=== PATIENT | male | born 1950 | race Caucasian/White ===

== ENCOUNTER 2017-12-31 03:09 | Observation (INO) | payer OTHER ==
[2017-12-31] MEDS ORDERED: ONDANSETRON 4 MG/2 ML VIAL ONE (03:27)
[2017-12-31] MEDS ORDERED: FAMOTIDINE 20 MG/2 ML VIAL IV ONE (03:27)
[2017-12-31] MEDS ORDERED: FENTANYL CITR 100 MCG/2 ML ONE ×3 (03:52→17:13)
[2017-12-31] MEDS ORDERED: PIPER/TAZO/NS 3.375gm 3.375 GM/100 ML BAG ONE (03:53)
[2017-12-31] MEDS ORDERED: ENALAPRILAT 1.25 MG/ML VIAL IV ONE ×2 (03:56→07:09)
[2017-12-31 04:23] LABS: Absolute Lymphocytes (CBC) 0.5 K/uL (0.7-4.9); Absolute Monocytes 0.5 K/uL (0.1-1.3); Absolute Neutrophil 9.3 K/uL (1.8-8.0); Basophils % 1.7 % (0-1.3); Eosinophils % 0.9 % (0-4.4); Hematocrit 43.7 % (39.6-49.0); MCH 32.4 pg (27.0-35.0); MCV 93.4 fL (80-100); Monocytes % 4.3 % (3.3-12.3); RBC Red Blood Cell Count 4.67 M/uL (4.33-5.43)
[2017-12-31 04:25] LABS: Protime INR 1.03
[2017-12-31 04:35] LABS: Albumin 4.2 g/dL (3.4-5.0); Bilirubin Direct 0.1 mg/dL (0-0.2); Bilirubin Total 0.5 mg/dL (0.2-1.0); CKMB Creatine Kinase MB 2.8 ng/mL (0.3-3.6); Magnesium 2.1 mg/dL (1.8-2.4); Potassium 3.8 mmol/L (3.5-5.1); Protein, Total 8.4 g/dL (6.4-8.2)
[2017-12-31 05:12] LABS: Blood Morphology Comment NOT SEEN (NOT SEEN); Platelet Estimate ADEQ
--- NOTE | 2017-12-31 05:49 | EDPHYS ---
Physician Documentation [facility] Name: Eric Bloom Age: 67 yrs Sex: Male : 1950 Arrival Date: 12/31/2017 Time: 03:20 Bed 2 Private MD: ED Physician Surinder Priest HPI: 12/31 03:36 This 67 yrs old Male presents to ER via EMS with complaints of Abdominal jovan Pain, Nausea/Vomiting. 03:36 The patient presents to the emergency department with nausea, vomiting, abdominal pain, jovan of the epigastric area and right upper quadrant. Onset: The symptoms/episode began/occurred just prior to arrival, this morning. Possible causes: unknown. The symptoms are aggravated by nothing. The symptoms are alleviated by nothing. Associated signs and symptoms: Pertinent positives: abdominal pain, nausea, vomiting. Severity of symptoms: At their worst the symptoms were mild moderate in the emergency department the symptoms are unchanged. The patient has not experienced similar symptoms in the past. Historical: - Allergies: 03:25 No Known Allergies; jd3 - Home Meds: 03:25 Allopurinol Oral [Active]; aspirin 81 mg Oral chew 1 tab once daily [Active]; Enalapril jd3 Oral [Active]; Lovastatin Oral [Active]; Vitamin B-12 Oral [Active]; - PMHx: 03:25 GERD; Hypertension; jd3 - PSHx: 03:25 CABG; Heart stents; jd3 - Immunization history:: Adult Immunizations up to date. - Social history:: Smoking status: Patient/guardian denies using tobacco, the patient reports quitting approximately 25 years ago. - Ebola Screening: : Patient negative for fever greater than or equal to 101.5 degrees Fahrenheit, and additional compatible Ebola Virus Disease symptoms. - Family history:: not pertinent. ROS: 03:36 Constitutional: Negative for fever, chills, and weight loss, Eyes: Negative for injury, jovan pain, redness, and discharge, ENT: Negative for injury, pain, and discharge, Neck: Negative for injury, pain, and swelling, Cardiovascular: Negative for chest pain, palpitations, and edema, Respiratory: Negative for shortness of breath, cough, wheezing, and pleuritic chest pain, Back: Negative for injury and pain, : Negative for injury, bleeding, discharge, and swelling, MS/Extremity: Negative for injury and deformity, Skin: Negative for injury, rash, and discoloration, Neuro: Negative for headache, weakness, numbness, tingling, and seizure, Psych: Negative for depression, anxiety, suicide ideation, homicidal ideation, and hallucinations, Allergy/Immunology: Negative for hives, rash, and allergies, Endocrine: Negative for neck swelling, polydipsia, polyuria, polyphagia, and marked weight changes, Hematologic/Lymphatic: Negative for swollen nodes, abnormal bleeding, and unusual bruising. 03:36 Abdomen/GI: Positive for abdominal pain, nausea and vomiting, of the epigastric area and right upper quadrant. 03:36 Back: 03:36 Back: Negative for injury or acute deformity, decreased range of motion, pain at rest, pain with movement. Exam: 03:36 Constitutional: This is a well developed, well nourished patient who is awake, alert, jovan and in no acute distress. Head/Face: Normocephalic, atraumatic. Eyes: Pupils equal round and reactive to light, extra-ocular motions intact. Lids and lashes normal. Conjunctiva and sclera are non-icteric and not injected. Cornea within normal limits. Periorbital areas with no swelling, redness, or edema. ENT: Nares patent. No nasal discharge, no septal abnormalities noted. Tympanic membranes are normal and external auditory canals are clear. Oropharynx with no redness, swelling, or masses, exudates, or evidence of obstruction, uvula midline. Mucous membranes moist. Neck: Trachea midline, no thyromegaly or masses palpated, and no cervical lymphadenopathy. Supple, full range of motion without nuchal rigidity, or vertebral point tenderness. No Meningismus. Chest/axilla: Normal chest wall appearance and motion. Nontender with no deformity. No lesions are appreciated. Cardiovascular: Regular rate and rhythm with a normal S1 and S2. No gallops, murmurs, or rubs. Normal PMI, no JVD. No pulse deficits. Respiratory: Lungs have equal breath sounds bilaterally, clear to auscultation and percussion. No rales, rhonchi or wheezes noted. No increased work of breathing, no retractions or nasal flaring. Back: No spinal tenderness. No costovertebral tenderness. Full range of motion. Male : Normal genitalia with no discharge or lesions. Skin: Warm, dry with normal turgor. Normal color with no rashes, no lesions, and no evidence of cellulitis. MS/ Extremity: Pulses equal, no cyanosis. Neurovascular intact. Full, normal range of motion. Neuro: Awake and alert, GCS 15, oriented to person, place, time, and situation. Cranial nerves II-XII grossly intact. Motor strength 5/5 in all extremities. Sensory grossly intact. Cerebellar exam normal. Normal gait. Psych: Awake, alert, with orientation to person, place and time. Behavior, mood, and affect are within normal limits. 03:36 Respiratory: the patient does not display signs of respiratory distress, Respirations: normal. 03:36 Abdomen/GI: Inspection: distension, Bowel sounds: normal, Palpation: mild abdominal tenderness, moderate abdominal tenderness, in the epigastric area and right upper quadrant. Vital Signs: 03:25 BP 211 / 83; Pulse 61; Resp 19 S; Temp 98.1(O); Pulse Ox 98% on R/A; Weight 83.91 kg jd3 (R); Height 5 ft. 7 in. (170.18 cm) (R); Pain 6/10; 04:15 BP 200 / 102; Pulse 62; Resp 18; Pulse Ox 96% on R/A; Pain 3/10; ea 04:49 BP 179 / 83; Pulse 58; Resp 20; Pulse Ox 97% ; ea 06:33 BP 193 / 98; Pulse 61; Resp 18; Pulse Ox 96% on R/A; Pain 2/10; ea 07:02 BP 193 / 100; Pulse 55; Resp 18; Pulse Ox 96% on R/A; hj 07:43 BP 181 / 84; Pulse 65; Resp 18; Pulse Ox 100% on R/A; hj 03:25 Body Mass Index 28.97 (83.91 kg, 170.18 cm) jd3 MDM: 03:30 Patient medically screened. [facility] 03:36 Data reviewed: vital signs, nurses notes, lab test result(s), EKG, radiologic studies, [facility] CT scan, plain films. 12/31 03:23 Order name: Basic Metabolic Panel 12/31 03:23 Order name: CBC with Diff 12/31 03:23 Order name: Ckmb 12/31 03:23 Order name: CPK 12/31 03:23 Order name: LFT's aa12/31 03:23 Order name: Magnesium; Complete Time: 05:29 aa1 12/31 03:23 Order name: NT PRO-BNP; Complete Time: 05:29 aa12/31 03:23 Order name: PT-INR; Complete Time: 05:29 aa12/31 03:23 Order name: Ptt, Activated; Complete Time: 05:29 aa1 12/31 03:23 Order name: Troponin (emerg Dept Use Only); Complete Time: 05:29 aa1 12/31 03:23 Order name: Lipase; Complete Time: 05:29 aa1 12/31 03:23 Order name: Basic Metabolic Panel; Complete Time: 05:29 EDMS 12/31 03:23 Order name: CBC with Automated Diff; Complete Time: 05:29 EDMS 12/31 03:23 Order name: CKMB Creatine Kinase MB; Complete Time: 05:29 EDMS 12/31 03:23 Order name: XRAY Chest (1 view) aa 12/31 03:23 Order name: EKG; Complete Time: 03:24 aa1 12/31 03:23 Order name: Creatine Phosphokinase; Complete Time: 05:29 EDMS 12/31 03:23 Order name: Liver (Hepatic) Function; Complete Time: 05:29 EDMS 12/31 03:44 Order name: CT Abd/Pelvis - W/Contrast [facility] 12/31 04:26 Order name: Manual Differential; Complete Time: 05:29 EDMS 08 05:35 Order name: US Abdomen Limited jovan 12/31 05:57 Order name: CONS Physician Consult [facility] 12/31 07:51 Order name: Urine Dipstick--Ancillary (enter results) ag 12/31 03:23 Order name: Cardiac monitoring; Complete Time: 03:29 aa1 12/31 03:23 Order name: EKG - Nurse/Tech; Complete Time: 03:29 aa1 12/31 03:23 Order name: IV Saline Lock; Complete Time: 03:30 aa12/31 03:23 Order name: Labs collected and sent; Complete Time: 03:30 aa12/31 03:23 Order name: O2 Per Protocol; Complete Time: 03:29 aa12/31 03:23 Order name: O2 Sat Monitoring; Complete Time: 03:29 aa12/31 03:23 Order name: Urine Dipstick-Ancillary (obtain specimen); Complete Time: 07:31 aa1 12/31 05:57 Order name: CONS Physician Consult [facility] 12/31 06:57 Order name: NPO; Complete Time: 06:59 jovan Administered Medications: 03:25 Drug: Zofran 4 mg Route: IVP; Site: right antecubital; aa1 04:27 Follow up: Response: No adverse reaction ea 03:25 Drug: Pepcid 20 mg Route: IVP; Site: right antecubital; aa1 04:28 Follow up: Response: No adverse reaction ea 04:10 Drug: fentaNYL (PF) 25 mcg Route: IVP; Site: right forearm; ea 04:51 Follow up: Response: No adverse reaction ea 04:11 Drug: Zosyn 3.375 grams Route: IVPB; Infused Over: 60 mins; Site: right antecubital; ea 04:50 Follow up: Response: No adverse reaction; IV Status: Completed infusion ea 04:26 Drug: Enalaprilat 1.25 mg Route: IV; Rate: per protocol; Site: right antecubital; ea 04:50 Follow up: Response: No adverse reaction; Blood pressure is lowered; IV Status: ea Completed infusion 05:28 Drug: fentaNYL (PF) 25 mcg Route: IVP; Site: right antecubital; ea 06:32 Follow up: Response: No adverse reaction; Pain is decreased ea 07:23 Drug: Enalaprilat 1.25 mg Route: IV; Rate: per protocol; Site: right antecubital; hj 07:24 Follow up: IV Status: Completed infusion hj Disposition: 12/31/17 05:48 Hospitalization ordered by Fabricio Roberts for Inpatient Admission. Preliminary diagnosis are Abdominal tenderness, Chest pain, unspecified, Other intestinal obstruction - moderately dilated proximal small bowel, Cholelithiasis, Essential (primary) hypertension. - Bed requested for Telemetry/MedSurg (Inpatient). - Status is Inpatient Admission. ag - Condition is Stable. - Problem is new. - Symptoms have improved. UTI on Admission? No Signatures: Dispatcher [employer] [facility] Anupama Juárez RN RN Fabiola Brock RN RN aa1 Cem, Surinder, MD MD jovan Jackman, Lyn ag HarvinderJoss baker RN RN hj Antunez, Elena, RN RN ea Davies, Jonathon, RN RN jd3 Corrections: (The following items were deleted from the chart) 05:51 05:48 Hospitalization Ordered by Fabricio Roberts MD for Inpatient Admission. Preliminary diagnosis is Abdominal tenderness; Chest pain, unspecified. Bed requested for Telemetry/MedSurg (Inpatient). Status is Inpatient Admission. Condition is Stable. Problem is new. Symptoms have improved. UTI on Admission? No. jovan 06:59 05:51 12/31/2017 05:48 Hospitalization Ordered by Fabricio Roberts MD for Inpatient jovan Admission. Preliminary diagnosis is Abdominal tenderness; Chest pain, unspecified. Bed requested for Telemetry/MedSurg (Inpatient). Status is Inpatient Admission. Condition is Stable. Problem is new. Symptoms have improved. UTI on Admission? No. 07:02 06:59 12/31/2017 05:48 Hospitalization Ordered by Fabricio Roberts MD for Inpatient jovan Admission. Preliminary diagnosis is Abdominal tenderness; Chest pain, unspecified; Other intestinal obstruction - moderately dilated proximal small bowel; Cholelithiasis. Bed requested for Telemetry/MedSurg (Inpatient). Status is Inpatient Admission. Condition is Stable. Problem is new. Symptoms have improved. UTI on Admission? No. jovan 07:44 07:02 12/31/2017 05:48 Hospitalization Ordered by Fabricio Roberts MD for Inpatient hj Admission. Preliminary diagnosis is Abdominal tenderness; Chest pain, unspecified; Other intestinal obstruction - moderately dilated proximal small bowel; Cholelithiasis; Essential (primary) hypertension. Bed requested for Telemetry/MedSurg (Inpatient). Status is Inpatient Admission. Condition is Stable. Problem is new. Symptoms have improved. UTI on Admission? No. jovan 07:52 07:44 12/31/2017 05:48 Hospitalization Ordered by Fabricio Roberts MD for Inpatient ag Admission. Preliminary diagnosis is Abdominal tenderness; Chest pain, unspecified; Other intestinal obstruction - moderately dilated proximal small bowel; Cholelithiasis; Essential (primary) hypertension. Bed requested for Telemetry/MedSurg (Inpatient). Status is Inpatient Admission. Condition is Stable. Problem is new. Symptoms have improved. UTI on Admission? No.
--- NOTE | 2017-12-31 05:49 | ER ---
Nurse's Notes [facility] Name: Eric Bloom Age: 67 yrs Sex: Male : 1950 Arrival Date: 12/31/2017 Time: 03:20 Bed 2 Private MD: Diagnosis: Abdominal tenderness;Chest pain, unspecified;Other intestinal obstruction-moderately dilated proximal small bowel;Cholelithiasis;Essential (primary) hypertension Presentation: 12/31 03:20 Presenting complaint: EMS states: "pt reported eating catfish around 1900 last night jd3 and is now having abdominal pain and burning sensation. pt reports this is similar to previous feeling when pt has had a past [place]. pt has extensive cardiac history.". Transition of care: patient was not received from another setting of care. Onset of symptoms was December 31, 2017. Risk Assessment: Do you want to hurt yourself or someone else? Patient reports no desire to harm self or others. Initial Sepsis Screen: Does the patient meet any 2 criteria? No. Patient's initial sepsis screen is negative. Does the patient have a suspected source of infection? No. Patient's initial sepsis screen is negative. Care prior to arrival: None. 03:20 Method Of Arrival: EMS: [facility] jd3 03:20 Acuity: NADJA 2 jd3 Historical: - Allergies: 03:25 No Known Allergies; jd3 - Home Meds: 03:25 Allopurinol Oral [Active]; aspirin 81 mg Oral chew 1 tab once daily [Active]; Enalapril jd3 Oral [Active]; Lovastatin Oral [Active]; Vitamin B-12 Oral [Active]; - PMHx: 03:25 GERD; Hypertension; jd3 - PSHx: 03:25 CABG; Heart stents; jd3 - Immunization history:: Adult Immunizations up to date. - Social history:: Smoking status: Patient/guardian denies using tobacco, the patient reports quitting approximately 25 years ago. - Ebola Screening: : Patient negative for fever greater than or equal to 101.5 degrees Fahrenheit, and additional compatible Ebola Virus Disease symptoms. - Family history:: not pertinent. Screenin:27 Abuse screen: Denies threats or abuse. Nutritional screening: No deficits noted. jd3 Tuberculosis screening: No symptoms or risk factors identified. Fall Risk No fall in past 12 months (0 pts). IV access (20 points). Ambulatory Aid- None/Bed Rest/Nurse Assist (0 pts). Gait- Weak (10 pts.). Mental Status- Oriented to own ability (0 pts). Total Tiwari Fall Scale indicates Low Risk Score (25-44 pts). Fall prevention measures have been instituted. Side Rails Up X 2 Placed close to Nursing Station Frequent Obs/Assesments occuring. Assessment: 03:20 General: Appears in no apparent distress. comfortable, Behavior is calm, cooperative, aa1 appropriate for age, quiet. Pain: Complains of pain in diaphragm, xyphoid area and abdomen Quality of pain is described as burning, Pain began 4 hours ago. Is continuous. Neuro: Level of Consciousness is awake, alert, obeys commands, Oriented to person, place, time, situation, Moves all extremities. Full function Speech is normal. Cardiovascular: Heart tones S1 S2 present Capillary refill < 3 seconds Clubbing of nail beds is absent JVD is absent Rhythm is regular. Respiratory: Airway is patent Respiratory effort is even, unlabored, Respiratory pattern is regular, symmetrical. GI: Abdomen is round Bowel sounds present X 4 quads. Abd is soft X 4 quads Reports upper abdominal pain, epigastric pain, indigestion, nausea, vomiting. : No signs and/or symptoms were reported regarding the genitourinary system. EENT: No signs and/or symptoms were reported regarding the EENT system. Derm: Skin is intact, is healthy with good turgor, Skin is pink, warm \\T\\ dry. Musculoskeletal: Circulation, motion, and sensation intact. Capillary refill < 3 seconds. 04:34 Reassessment: Patient and/or family updated on plan of care and expected duration. Pain ea level reassessed. Patient is alert, oriented x 3, equal unlabored respirations, skin warm/dry/pink. 05:50 Reassessment: Patient and/or family updated on plan of care and expected duration. Pain ea level reassessed. Patient is alert, oriented x 3, equal unlabored respirations, skin warm/dry/pink. Pt taken to CT. 06:31 Reassessment: Patient and/or family updated on plan of care and expected duration. Pain ea level reassessed. Patient is alert, oriented x 3, equal unlabored respirations, skin warm/dry/pink. Pt returned from CT. 07:03 General: Appears in no apparent distress. comfortable, Behavior is calm, cooperative, hj appropriate for age. Pain: Complains of pain in right upper quadrant and epigastric area and abdomen and xyphoid area and diaphragm Quality of pain is described as burning, Pain began 4 hours ago. Is continuous. Neuro: Level of Consciousness is awake, alert, obeys commands, Oriented to person, place, time, situation, Moves all extremities. Full function Speech. Cardiovascular: Heart tones S1 S2 present Capillary refill < 3 seconds Clubbing of nail beds is absent JVD is absent Rhythm is regular. Respiratory: Airway is patent Respiratory effort is even, unlabored, Respiratory pattern is regular, symmetrical. GI: Bowel sounds present X 4 quads. Abd is soft Reports upper abdominal pain, epigastric pain, indigestion, nausea. : No signs and/or symptoms were reported regarding the genitourinary system. EENT: No signs and/or symptoms were reported regarding the EENT system. Derm: Skin Skin is. Musculoskeletal: Vital Signs: 03:25 BP 211 / 83; Pulse 61; Resp 19 S; Temp 98.1(O); Pulse Ox 98% on R/A; Weight 83.91 kg jd3 (R); Height 5 ft. 7 in. (170.18 cm) (R); Pain 6/10; 04:15 BP 200 / 102; Pulse 62; Resp 18; Pulse Ox 96% on R/A; Pain 3/10; ea 04:49 BP 179 / 83; Pulse 58; Resp 20; Pulse Ox 97% ; ea 06:33 BP 193 / 98; Pulse 61; Resp 18; Pulse Ox 96% on R/A; Pain 2/10; ea 07:02 BP 193 / 100; Pulse 55; Resp 18; Pulse Ox 96% on R/A; hj 07:43 BP 181 / 84; Pulse 65; Resp 18; Pulse Ox 100% on R/A; hj 03:25 Body Mass Index 28.97 (83.91 kg, 170.18 cm) jd3 ED Course: 03:20 Patient arrived in ED. aa1 03:21 Fabiola Brock RN is Primary Nurse. aa1 03:21 Initial lab(s) drawn, by me, EKG done, by ED staff, reviewed by Surinder Priest MD. aa1 Inserted saline lock: 20 gauge in right antecubital area, using aseptic technique. Blood collected. 03:23 Triage completed. jd3 03:26 Arm band placed on. jd3 03:27 Patient has correct armband on for positive identification. Placed in gown. Bed in low jd3 position. Call light in reach. Side rails up X2. 03:30 Surinder Priest MD is Attending Physician. jovan 03:37 X-ray completed. Portable x-ray completed in exam room. Patient tolerated procedure jw2 well. 03:38 Report given to Ros Andrea RN. aa1 03:50 Ros Andrea RN is Primary Nurse. ea 05:32 Radiology exam delayed due to Patient did not finish oral contrast until 0500. kw1 Nauseous. will scan at approx. 0600. 05:47 XRAY Chest (1 view) In Process Unspecified. EDMS 05:48 Fabricio Roberts MD is Hospitalizing Provider. jovan 05:[address] via stretcher. kw1 06:07 CT completed. Patient tolerated procedure well. Patient moved back from CT. kw1 07:21 X-ray completed. Portable x-ray completed in exam room. Patient tolerated procedure jw2 well. 07:43 No provider procedures requiring assistance completed. Patient admitted, IV remains in hj place. intact. 07:50 Primary Nurse role handed off by Ros Andrea RN ag Administered Medications: 03:25 Drug: Zofran 4 mg Route: IVP; Site: right antecubital; aa1 04:27 Follow up: Response: No adverse reaction ea 03:25 Drug: Pepcid 20 mg Route: IVP; Site: right antecubital; aa1 04:28 Follow up: Response: No adverse reaction ea 04:10 Drug: fentaNYL (PF) 25 mcg Route: IVP; Site: right forearm; ea 04:51 Follow up: Response: No adverse reaction ea 04:11 Drug: Zosyn 3.375 grams Route: IVPB; Infused Over: 60 mins; Site: right antecubital; ea 04:50 Follow up: Response: No adverse reaction; IV Status: Completed infusion ea 04:26 Drug: Enalaprilat 1.25 mg Route: IV; Rate: per protocol; Site: right antecubital; ea 04:50 Follow up: Response: No adverse reaction; Blood pressure is lowered; IV Status: ea Completed infusion 05:28 Drug: fentaNYL (PF) 25 mcg Route: IVP; Site: right antecubital; ea 06:32 Follow up: Response: No adverse reaction; Pain is decreased ea 07:23 Drug: Enalaprilat 1.25 mg Route: IV; Rate: per protocol; Site: right antecubital; hj 07:24 Follow up: IV Status: Completed infusion hj Outcome: 05:48 Decision to Hospitalize by Provider. jovan 07:43 Admitted to Med/surg accompanied by tech, via wheelchair, room 209, with chart, Report hj called to KRYSTINA Villatoro 07:43 Condition: stable 07:43 Instructed on the need for admit, Demonstrated understanding of instructions. 07:44 Patient left the ED. hj 07:52 Patient left the ED. ag Signatures: Dispatcher [employer] EDMS Fabiola Brock, RN RN aa1 Surinder Priest MD MD cha Gallardo, Lyn Joss Blanton RN RN hj Wailes, Jenni jw2 Ros Andrea RN RN ea Davies, Jonathon, RN RN jd3 Wilhelm, Kimberly kw1 Corrections: (The following items were deleted from the chart) 03:28 03:27 Patient has correct armband on for positive identification. Bed in low position. jd3 Call light in reach. Side rails up X2. jd3
[2017-12-31] MEDS ORDERED: ACETAMINOPHEN 500 MG TAB PO PRN (06:36)
[2017-12-31] MEDS ORDERED: ALPRAZOLAM 0.25 MG TABLET PO PRN (06:36)
[2017-12-31] MEDS ORDERED: MORPHINE 4 MG/ML SYR IV PRN ×2 (06:36→17:52)
[2017-12-31] MEDS ORDERED: HYDRALAZINE HCL 20 MG/ML VIAL IV PRN (08:05)
[2017-12-31 08:08] LABS: Urine Blood TRACE (NEG); Urine Glucose TRACE (NEG); Urine Protein 1+ (NEG); Urine pH 7.5 (5.0-7.0)
--- NOTE | 2017-12-31 08:11 | P.HP ---
Certification for Inpatient Patient admitted to: Inpatient With expected LOS: >2 Midnights Patient will require the following post-hospital care: None Practitioner: I am a practitioner with admitting privileges, knowledge of patient current condition, hospital course, and medical plan of care. Services: Services provided to patient in accordance with Admission requirements found in Title 42 Section 412.3 of the Code of Federal Regulations Patient History Date of Service: 12/31/17 Reason for admission: Abdominal pain; chest pain; nausea and vomiting History of Present Illness: Patient is a 67-year-old gentleman who presents to the hospital with abdominal discomfort. This started later yesterday evening as he started having nausea and vomiting. Patient's symptoms were not improving so he came into the hospital for further evaluation. In the emergency room patient was given IV hydration and anti emetics. His nausea and vomiting have resolved. However, he denies having flatus. His last bowel movement was yesterday. He is not having any diarrhea. His pain is mainly in the epigastric and right upper quadrant region. He is also having some chest pain which does not radiate. It is mainly midsternal. In the emergency room patient had a CT scan performed which revealed possible small bowel obstruction along with cholelithiasis with possible cholecystitis. Patient will be admitted to the hospital for further evaluation. Allergies No Known Drug Allergies Allergy (Verified 12/31/17 07:13) Unknown No Known Allergies Allergy (Uncoded 12/31/17 07:48) Unknown Home Medications: Allopurinol [Zyloprim] 300 mg PO DAILY 12/15/14 Aspirin [Aspirin EC] 81 mg PO DAILY 12/15/14 Enalapril Maleate [Vasotec] 20 mg PO DAILY 12/15/14 Lovastatin 40 mg PO DAILY 12/31/17 Omeprazole 20 mg PO DAILY 12/31/17 - Past Medical/Surgical History Diabetic: No -: CAD -: HYPERLIPIDEMIA -: HTN -: ARTERIOSCLEROSIS -: ANGINA -: had 5 heart bypass- CABG -: HEART STENTS - Family History Father Medical History: Hypertension, Other (see notes) Notes: heart attack Mother Medical History: Heart disease, Lung disease - Social History Smoking Status: Former smoker Alcohol use: Yes CD- Drugs: No Caffeine use: No Review of Systems 10-point ROS is otherwise unremarkable Physical Examination - Vital Signs Temperature: 98.1 F Blood Pressure: 181/84 Pulse: 65 Respirations: 18 - Physical Exam General: Alert, In no apparent distress, Oriented x3 HEENT: Atraumatic, PERRLA, Mucous membr. moist/pink, EOMI, Sclerae nonicteric Neck: Supple, 2+ carotid pulse no bruit, No LAD, Without JVD or thyroid abnormality Respiratory: Clear to auscultation bilaterally, Normal air movement Cardiovascular: Regular rate/rhythm, Normal S1 S2, No murmurs Gastrointestinal: Absent bowel sounds, Distended, Tenderness, Rebound, Guarding Musculoskeletal: No clubbing, No swelling, No tenderness Integumentary: No rashes Neurological: Normal gait, Normal speech, Normal strength at 5/5 x4 extr, Normal tone, Sensation intact, Cranial nerves 3-12 intact, Normal affect Lymphatics: No axilla or inguinal lymphadenopathy - Studies Laboratory Data (last 24 hrs) 12/31/17 03:20: PT 12.2, INR 1.03, APTT 27.9 12/31/17 03:20: WBC 10.6, Hgb 15.1, Hct 43.7, Plt Count 154 12/31/17 03:20: Sodium 141, Potassium 3.8, BUN 24 H, Creatinine 1.10, Glucose 163 H, Magnesium 2.1, Total Bilirubin 0.5, AST 22, ALT 23, Alkaline Phosphatase 69, Lipase 87 Assessment & Plan - Problems (Diagnosis) (1) Abdominal pain Current Visit: Yes Status: Acute (2) Small bowel obstruction Current Visit: Yes Status: Acute (3) Cholelithiasis and cholecystitis without obstruction Current Visit: Yes Status: Acute (4) Chest pain, rule out acute myocardial infarction Current Visit: Yes Status: Acute (5) CAD (coronary artery disease) of bypass graft Current Visit: No Status: Acute - Plan 1. General surgery consultation along with IV antibiotics. If persistent nausea and vomiting then we will place an NG tube 2. Cardiology consultation 3. Serial troponins and EKG, Echocardiogram in the morning 4. Hold Anti-platelet therapy and anti coagulation, continue with beta-lindsey, statin, and O2 as needed 5. IV morphine for pain 6. Nitro p.r.n. Discharge Plan: Home Plan to discharge in: Greater than 2 days - Advance Directives Does patient have a Living Will: No Does patient have a Durable POA for Healthcare: No - Code Status/Comfort Care Code Status Assessed: Yes Code Status: Full Code Critical Care: No Time Spent Managing PTS Care (In Minutes): 50
[2017-12-31] MEDS ORDERED: ENALAPRILAT 1.25 MG/ML VIAL IV PRN (08:13)
[2017-12-31] MEDS ORDERED: METOPROLOL TAR 50 MG TAB PO SCH (09:00)
[2017-12-31 09:23] VITALS: BMI 28.1
[2017-12-31] MEDS: ASPIRIN EC 81 MG TAB PO SCH (09:37)
[2017-12-31] MEDS: METRONIDAZOLE 500mg IVPB 500 MG/100 ML BAG IV SCH ×2 (09:38→17:00)
[2017-12-31] MEDS: Levofloxacin500mg IV 500 MG/100 ML BAG IV SCH (09:39)
[2017-12-31] MEDS: NA CHLORIDE 0.9% 1,000 ML IV SCH ×2 (09:42→20:43)
--- NOTE | 2017-12-31 10:53 | EKG ---
Test Date: 2017-12-31 Test Time: 03:14:21 Manager File: SRI MEASUREMENT RESULTS: Intervals: Rate: 57 ND: 156 QRSD: 100 QT: 444 QTc: 432 [place]: P: 59 ND: 156 QRS: 30 T: 57 INTERPRETIVE STATEMENTS: Sinus bradycardia with sinus arrhythmia Possible Left atrial enlargement Nonspecific ST abnormality Abnormal ECG Compared to ECG 06/22/2015 07:42:21 ST (T wave) deviation now present Electronically Signed On 12-31-17 10:53:30 CDT by Ross Lechuga
--- NOTE | 2017-12-31 11:31 | RAD REPORT ---
EXAM DESCRIPTION: US - Abdomen Exam Limited - 12/31/2017 10:52 am CLINICAL HISTORY: ABD PAIN COMPARISON: Abdomen Pelvis W Contrast dated 12/31/2017 FINDINGS: The gallbladder demonstrates several gallstones near the gallbladder neck. Gallbladder wal l is mildly thickened to 6 mm with intramural edema and trace pericholecystic fluid. The common bile duct is normal measuring 5 mm. The liver demonstrates no findings of intrahepatic biliary dilatation. IMPRESSION: Cholelithiasis with early findings of acute cholecystitis suspected. Follow-up MEJIA woodard may be of value for further assessment.
--- NOTE | 2017-12-31 11:53 | RAD REPORT ---
EXAM DESCRIPTION: RAD - Abdomen W Erect - 12/31/2017 7:22 am CLINICAL HISTORY: dilated small bowel, proximally Pain COMPARISON: No comparisons FINDINGS: The bowel gas pattern is non-obstructive. No evidence of free air or pneumatosis. No suspi cious calcifications. No significant bony findings. IMPRESSION: Negative examination.
--- NOTE | 2017-12-31 12:07 | RAD REPORT ---
EXAM DESCRIPTION: CTAbdomen Pelvis W Contrast - 12/31/2017 6:59 am CLINICAL HISTORY: Abdominal pain. ABD PAIN COMPARISON: No comparisons TECHNIQUE: Biphasic CT imaging of the abdomen and pelvis was performed with 100 ml non-ionic IV cont rast. All CT scans are performed using dose optimization technique as appropriate and may include automated exposure control or mA/KV adjustment according to patient size. FINDINGS: Mild linear opacities are present in both lung bases, likely subsegmental atelectasis. The liver demonstrates diffuse fatty infiltration. A small cyst is seen in the inferior right lobe of the liver measuring 15 mm. Several gallstones are noted including a gallbladder stone in the region of the neck. The spleen, adrenal glands, kidneys and pancreas are within normal limits. No bowel obstruction, free air, free fluid or abscess. Sigmoid diverticulosis coli is present without diverticulitis. The appendix is normal. Small bilateral fat containing inguinal hernias. No evidence of significant lymphadenopathy. No suspicious bony findings. IMPRESSION: Cholelithiasis. Follow-up sonography of the gallbladder may be of value. Fatty liver. Sigmoid diverticulosis. A preliminary written report was provided at the time of the study, and the report was reviewed prio r to final dictation.
--- NOTE | 2017-12-31 12:17 | RAD REPORT ---
EXAM DESCRIPTION: RAD - Chest Single View - 12/31/2017 5:47 am CLINICAL HISTORY: CHEST PAIN Chest pain. COMPARISON: CHEST SINGLE VIEW dated 06/22/2015; CHEST SINGLE VIEW dated 06/21/2015; CHEST SINGLE VIE W dated 12/15/2014 FINDINGS: Portable technique limits examination quality. The lungs are underinflated resulting vascular crowding. Atelectasis suspected in the left lung base. No focal infiltrate seen. The heart is upper limit normal size. Sternotomy wires present. No displac ed fractures. IMPRESSION: Underinflated lungs.
--- NOTE | 2017-12-31 13:48 | CON ---
Chief Complaint: Right upper quadrant abdominal pain. Reason For Cardiology Consult: Preoperative clearance. History Of Present Illness: Mr. Bloom is a 67-year-old man who has had bypass surgery twice, once in 2009, the second one was in 2014. He had a stent about a week after his original bypass surgery, a stent in 2014 six months before the second bypass surgery. Since his second bypass surgery in , he has had no other heart cath or hospitalizations for acute coronary syndrome. Mr. Bloom does not have angina very frequently at all and the pain he has now did not seem to be like his angina th at he has had in the past and since he has been here, both a CAT scan and ultrasound of the abdomen i ndicate a stone and a severely dilated gallbladder and evidence of fluid in the tissues around the ga llbladder all consistent with acute cholecystitis. He has no known allergies. He does not use tobac co. He quit using all tobacco very remotely. Medications: Outpatient medications have been aspirin, Allopurinol, enalapril, lovastatin, and omepr azole. Not sure why he is not on a larger dose of a statin. He must have good control of his lipids with lovastatin. Physical Examination: General: He is 5 feet 8 inches, 185 pounds. Appears to be in little distress from the abdomen. Lungs: Clear. Heart: Within normal limits. Abdomen: Mildly tender. Extremities: Revealed diminished distal pulses but palpable. Trace edema. No cyanosis, clubbing. Imaging: EKG; sinus rhythm, nonspecific ST and T abnormality. Laboratory Data: Reveals normal troponin levels. Serial troponin levels normal. He has a blood sug ar of 163 that is nonfasting. Creatinine 1.1. White blood cell count is normal, but percent neutrop hils is elevated. Hemoglobin, hematocrit, platelet counts are all normal. Impression: The patient has acute cholecystitis. I think his heart is stable enough to undergo a ch olecystectomy. He has not been seen by the surgeon. We do not know what the surgeon's opinion of gio bass these findings will be. The fact we really do not have the radiologist's reports yet. All of this is fluid and fast moving, so I will recommend we do an echocardiogram tomorrow. I am sure it can be done early enough that we can consider it a preop thing. If his surgery is deemed to be so emergent that he needs to go today, then it is a balance between risk and benefit. I think he has moderate r isk at worse of having cardiac trouble during the surgery. RONNI/ADRIAN Voice ID: [id number] Report ID: [id number]
--- NOTE | 2017-12-31 15:01 | P.CNS ---
Date of Consult: 12/31/17 PC: This 67-year-old male presents emergency room with severe right upper quadrant abdominal pain for diagnosis and treatment. HPC: Patient states that the pain began suddenly yesterday evening. He had been eating some catfish. Describes the pain is severe, located underneath the rib cage, radiating into his back. Still has a feeling of discomfort. Also complains that he has been constipated. 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 No chest pain or palpitations. Says he has also had trouble with indigestion particular over the last few years. Tense to belch a lot. O/E awake alert uncomfortable at the moment vital signs are stable HEENT: Not jaundice Chest: Chest movement equal bilaterally ABD: Has right upper quadrant tenderness LOCO: Intact DATA: Cholecystitis with cholelithiasis on CT scan and ultrasound with some pericystic fluid IMPRESSION: Cholecystitis with cholelithiasis, biliary call PLAN: I will take him to the operating room for laparoscopic possible open cholecystectomy with intraoperative cholangiogram. The risks of this procedure have been discussed. The possibility of bleeding, infection, injury to bile ducts blood vessels and intestines has been described. The possible need for an open and/or further surgeries and procedures was discussed. He understands and wants us to proceed.
[2017-12-31] MEDS ORDERED: BUPIVACAINE 0.5% PF 10 ML VIAL ONE (15:43)
[2017-12-31] MEDS ORDERED: PROPOFOL 200 MG/20 ML VIAL IV ONE (15:45)
[2017-12-31] MEDS ORDERED: ROCURONIUM 50 MG/5 ML VIAL IV ONE (15:49)
[2017-12-31] MEDS ORDERED: Ringers Lactate 1,000 ML IV ONE (16:01)
[2017-12-31] MEDS ORDERED: LIDOCAINE 2% MPF 5 ML VIAL ONE (16:21)
[2017-12-31] MEDS ORDERED: ESMOLOL HCL 10 ML IV ONE (16:31)
[2017-12-31] MEDS ORDERED: LABETALOL HCL 100 MG/20 ML ONE (16:33)
[2017-12-31] MEDS ORDERED: DEXAMETHASONE 10 MG/ML VIAL ONE (16:35)
[2017-12-31] MEDS ORDERED: ONDANSETRON HCL 40 MG/20 ML VIAL ONE (16:35)
[2017-12-31] MEDS ORDERED: KETOROLAC 30 MG/ML INJ ONE (16:35)
[2017-12-31] MEDS ORDERED: GLYCOPYRROLATE 0.2 MG/ML SYR ONE ×3 (16:59→17:26)
[2017-12-31] MEDS ORDERED: NEOSTIGMINE 1 MG/ML -5 ML SYRINGE ONE (16:59)
--- NOTE | 2017-12-31 17:38 | P.OP ---
Preoperative diagnosis: Acute on chronic cholecystitis with cholelithiasis, biliary colic Postoperative diagnosis: The same Primary procedure: Laparoscopic cholecystectomy Secondary procedure: Intraoperative cholangiogram Other procedure(s): Removal of stone from the cystic duct Anesthesia: General Estimated blood loss: Less than 20 cc Specimen: 1 gallbladder and contents Operative Technique: The patient brought the operating room and placed supine on the table. After the induction of adequate general endotracheal anesthesia, the area of the abdomen was prepped with a DuraPrep solution, and he was draped in usual aseptic manner. A subumbilical incision was made. This brought down through the skin and subcutaneous tissue. The Visiport was used to enter the peritoneal cavity and created pneumoperitoneum to approximately 12 mm of mercury. Under direct vision a 5 mm trocar was placed in the upper midline, and 2 other 5 mm trocars on the right lateral side of the abdomen. With the patient placed in reverse Trendelenburg and rolled to the left were able to visualize the right upper quadrant. We were impressed by a distended hemorrhagic gallbladder that was seen. The contents of the gallbladder were aspirated. They were thick, viscous , clearish bile consistent with a hydrops. The serosal surface of the gallbladder itself was actually hemorrhagic. The area was irrigated with a copious amount of saline solution as we apply graspers to the fundus of the gallbladder. Another 1 was placed on the body. We were able to visualize around Rizwana's pouch. Once again this part was swollen, congested, and very edematous. The grasper on the fundus was now placed down on Rizwana's pouch. Gentle dissection allowed us to expose an engorged lymph node. The feeders to this were taken down using electro cautery. The artery was identified. It was clipped and divided in the usual manner. The cystic duct was now isolated. Having obtained a critical view we noted that these cystic duct itself was quite thin and friable. An opening was made into the cystic duct after having played a clip between the gallbladder and the cystic duct itself. The catheter was now passed into the cystic duct. It would not pass initially. Gentle palpation of the duct shows a stone lodged in it. This was gently taken out by external manipulation, use of the cholangiocath with the blue mildly inflated, planned gentle pressure. Finally it was removed. The catheter was now placed into the cystic duct through which we obtained a normal intraoperative cholangiogram. It we could see contrast flowing into the duodenum and we noted the tortuosity of the cystic duct itself. The catheter was now removed. Clips were placed on the distal portion of the cystic duct. Because of the stay amount of edema, the duct was completely transected. We placed a chromic time on this. We also placed 2 ties after it had been ligated with 0 chromic suture. At this point the gallbladder was dissected free from the liver bed. It was interesting to note the amount of edema between the gallbladder and the liver itself. The gallbladder was now detached. It was placed into an Endo- Catch. It was then brought out through the umbilical trocar site. Attention was turned towards the right upper quadrant. This area was irrigated with a copious amount of saline solution until the effluent was clear. The anterior abdominal wall was DENISE blocked with 0.25% Marcaine to allow for adequate analgesia during the postoperative period. 0.25% Marcaine was also aerosolized into the peritoneal cavity. At this point the umbilical trocar site was approximated with the Endo Close. We used 2 absorbable sutures to bring the tissue together. The pneumoperitoneum was now collapsed, the trocars removed, and black applied to the skin. At the end of the procedure he was stable when sent to the recovery room. Needle sponge instrument count were correct. No drains were placed. Transferred to: Recovery Room Condition: Good
[2017-12-31] MEDS ORDERED: ONDANSETRON 4 MG/2 ML VIAL IV PRN (17:52)
[2017-12-31] MEDS ORDERED: MAGNESIUM HYDROXIDE 8% 30 ML PO PRN (17:52)
[2017-12-31] MEDS: ATORVASTATIN 20 MG TAB PO SCH (20:43)
[2018-01-01 04:35] LABS: Absolute Lymphocytes (CBC) 0.4 K/uL (0.7-4.9); Absolute Monocytes 0.7 K/uL (0.1-1.3); Hematocrit 39.4 % (39.6-49.0); MCH 32.3 pg (27.0-35.0); MCV 92.9 fL (80-100); MPV 9.8 fL (7.6-11.3); Monocytes % 5.7 % (3.3-12.3); RBC Red Blood Cell Count 4.24 M/uL (4.33-5.43)
--- NOTE | 2018-01-01 09:12 | ECHO ---
HEIGHT: 5 ft 8 in WEIGHT: 185 lb 0 oz DATE OF STUDY: 01/01/[address]: Ross Lechuga MD 2-DIMENSIONAL: YES M.MODE: YES DOPPLER: YES COLOR FLOW: YES TDS: PORTABLE: DEFINITY: BUBBLE STUDY: DIAGNOSIS: PREOP, HISTORY OF CORNARY ARTERY BYPASS GRAFT TWICE CARDIAC HISTORY: CATHERIZATION: YES SURGERY: YES PROSTHETIC VALVE: NO PACEMAKER: NO MEASUREMENTS (cm) DIASTOLIC (NORMALS) SYSTOLIC (NORMALS) IVSd 0.9 (0.6-1.2) LA Diam 3.3 (1.9-4.0) LVEF 61% LVIDd 4.1 (3.5-5.7) LVIDs 2.8 (2.0-3.5) %FS 23% LVPWd 1.2 (0.6-1.2) Ao Diam 2.7 (2.0-3.7) 2 DIMENSIONAL ASSESSMENT: RIGHT ATRIUM: NORMAL LEFT ATRIUM: NORMAL RIGHT VENTRICLE: NORMAL LEFT VENTRICLE: NORMAL TRICUSPID VALVE: NORMAL MITRAL VALVE: NORMAL PULMONIC VALVE: NORMAL AORTIC VALVE: NORMAL PERICARDIAL EFFUSION: NONE AORTIC ROOT: NORMAL LEFT VENTRICULAR WALL MOTION: NORMAL DOPPLER/COLOR FLOW: TRACE MITRAL AND TRICUSPID REGURGITATION. NORMAL RIGHT VENTRICULAR SYSTOLIC PRESSURE. COMMENTS: NORMAL LEFT VENTRICULAR EJECTION FRACTION. NORMAL 2-DIMENSIONAL ECHOCARDIOGRAM. TRACE MITRAL AND TRICUSPID REGURGITATION. TECHNOLOGIST: ALEXA APONTE
[2018-01-01] MEDS: Levofloxacin500mg IV 500 MG/100 ML BAG IV SCH (09:40)
[2018-01-01] MEDS: ASPIRIN EC 81 MG TAB PO SCH (09:40)
[2018-01-01] MEDS: NA CHLORIDE 0.9% 1,000 ML IV SCH (11:40)
--- NOTE | 2018-01-01 15:10 | PN ---
Date of Progress Note: 01/01/2018 Subjective: The patient seen and examined, chart reviewed, and case discussed with RN. The patient ambulating in the hallways. States pain is much improved. States he still does not have an appetite , on clear liquids. Review of Systems: Negative except as above. Medications: List reviewed. Objective: Vital Signs: Temperature 98.3, heart rate 62, blood pressure 144/78, respirations 20, an d O2 95% on room air. General: Awake, alert, oriented x3. Elderly male, somewhat lethargic. No acute distress. CV: S1, S2. No murmurs. Regular rate and rhythm. Peripheral pulses present. Respiratory: Clear to auscultation bilaterally. No wheezing. Gastrointestinal: Abdomen is soft, nontender, nondistended. Positive bowel sounds. No guarding or rigidity. Extremities: No clubbing, cyanosis, edema. Neurologic: Nonfocal. Laboratory Data: WBC 12, H and H 13.7, 39.4, platelets 134, and neutrophils 91%. Echocardiogram adolfo ws ejection fraction 61%. Normal 2D echo. Assessment: 1.Generalized abdominal pain, resolved. 2.Small bowel obstruction, resolved. 3.Cholelithiasis and cholecystitis without biliary obstruction, status post laparoscopic cholecystec beck, on clear liquids. The pain is well controlled. Ambulating. Advance diet as tolerated. Nidia Carter input. 4.Chest pain. Acute coronary syndrome ruled out. Echocardiogram shows normal ejection fraction. A ppreciate Dr. Lechuga' input. 5.Coronary artery disease, status post coronary artery bypass graft, [place] artery, [place] heart wit hout angina. Plan: GI, DVT prophylaxis. Advance diet as tolerated. Continue ambulating. Likely discharge in th e next 24 hours once cleared by consultants. Code status is full. We will change to observation sta tus. SA/MODL Voice ID: [id number] Report ID: [id number]
[2018-01-01] MEDS: ENALAPRIL 10 MG TAB PO SCH (16:58)
[2018-01-01] MEDS: ALLOPURINOL 300 MG TAB PO SCH (16:58)
[2018-01-01] MEDS: HYDROCODONE/APAP 7.5/325 MG TAB PO PRN ×2 (17:55→22:58)
[2018-01-01] MEDS: ATORVASTATIN 20 MG TAB PO SCH (20:33)
[2018-01-02] MEDS: NA CHLORIDE 0.9% 1,000 ML IV SCH (01:00)
[2018-01-02 05:52] LABS: Absolute Monocytes 0.7 K/uL (0.1-1.3); Absolute Neutrophil 7.6 K/uL (1.8-8.0); Basophils % 0.1 % (0-1.3); Eosinophils % 0.6 % (0-4.4); Hematocrit 36.4 % (39.6-49.0); Lymphocytes % 10.3 % (15.3-44.8); MCV 92.4 fL (80-100); MPV 9.6 fL (7.6-11.3); Monocytes % 7.9 % (3.3-12.3); RBC Red Blood Cell Count 3.93 M/uL (4.33-5.43)
[2018-01-02 05:59] LABS: Potassium 3.8 mmol/L (3.5-5.1)
[2018-01-02] MEDS ORDERED: PANTOPRAZOLE 40MG TABLET PO SCH (06:30)
[2018-01-02] MEDS: ASPIRIN EC 81 MG TAB PO SCH (08:52)
[2018-01-02] MEDS: ENALAPRIL 10 MG TAB PO SCH (08:52)
[2018-01-02] MEDS: ALLOPURINOL 300 MG TAB PO SCH (08:52)
[2018-01-02] MEDS: Levofloxacin500mg IV 500 MG/100 ML BAG IV SCH (08:52)
[2018-01-02 09:36] VITALS: O2SAT 98
[2018-01-02] MEDS: HYDROCODONE/APAP 7.5/325 MG TAB PO PRN (11:18)
[2018-01-02 12:07] VITALS: BP 150/75; TEMP 97.5
--- NOTE | 2018-01-03 11:05 | DS ---
Date of Discharge: 01/02/2018 Consultants: Toni Carter MD, with General Surgery; Ross Lechuga MD, with Cardiology. Procedures: On 12/31/2017 was laparoscopic cholecystectomy and intraoperative cholangiogram, removal of stone from the cystic duct. Admitting Diagnoses: 1.Abdominal pain. 2.Small bowel obstruction. 3.Cholelithiasis and cholecystitis without biliary obstruction. 4.Chest pain. 5.Coronary artery disease, status post coronary artery bypass graft. Discharge Diagnoses: 1.Generalized abdominal pain, resolved. 2.Small bowel obstruction, resolved. 3.Cholelithiasis and cholecystitis without biliary obstruction, status post laparoscopic cholecystec beck and stone removal. 4.Chest pain, acute coronary syndrome ruled out. 5.Coronary artery disease, status post coronary artery bypass graft, [place] artery, [place] heart wit h angina. Hospital Course: The patient is a 67-year-old male who comes in with abdominal pain. CT scan was do ne which showed possible small bowel obstruction along with cholelithiasis and possible cholecystitis . The patient was started on IV antibiotics. Abdominal ultrasound was done which showed cholelithia sis, early findings of acute cholecystitis suspected. Dr. Carter with General Surgery was consulted . Dr. Lechuga was also consulted for preop clearance and his ejection fraction was found to be 61% on echo with trace mitral and tricuspid regurg. The patient was cleared for surgery with moderate risk of cardiac risk. His troponin levels were negative and ACS was ruled out. The patient's white coun t normalized. He did well post surgery. He was able to tolerate a diet and was able to ambulate. T he patient was then cleared from surgery and cardiology standpoint. He was then discharged home in a stable condition. Activity: As tolerated. No operating heavy machinery or driving while on narcotics. Diet: Heart healthy, supplement with fat-soluble vitamins. Followup: Follow up with PCP in 2 to 3 days. Follow up with surgeon, Dr. Carter in 10 days. Retur n to ER for worsening condition. Medications: As per medication reconciliation list. Physical Examination: General: Awake, alert, and oriented, no acute distress. CV: S1 and S2. No murmurs. Respiratory: Moving air well bilaterally. Abdomen: Soft, nontender, and nondistended. Positive bowel sounds. Incision site clean, dry, and i ntact. Extremities: No clubbing, cyanosis, or edema. Neurologic: Nonfocal. SA/MODL Voice ID: [id number] Report ID: [id number]
--- NOTE | 2018-01-12 11:12 | RAD REPORT ---
EXAM DESCRIPTION: RADCholangiogram Oper-Xray Or01/12/2018 9:25 am CLINICAL HISTORY: Abdominal pain FINDINGS: The examination was performed by Dr. Carter. The cystic duct was cannulated and contrast administered. Contrast flowed into the duodenum. The biliary tree is normal caliber without a filling defect seen. Borderline dilatation of the common bile duct is noted. Three fluoroscopic spot images are submitted. The examination has been submitted today for interpretation.
== END 2018-01-02 13:50 | disposition home or self-care (01) ==
LOC: ER 03:09 → ERHOLD 05:52 → INTOOBSV 05:52 → 2ND 07:37
PROVIDERS: ADMIT Hospitalist; ATTEND Hospitalist
PROC: BF00YZZ Plain Radiography of Bile Ducts using Other Contrast (ICD-10-PCS; 2017-12-31)
PROC: 0FT44ZZ Resection of Gallbladder, Percutaneous Endoscopic Approach (ICD-10-PCS; principal; 2017-12-31 16:00)
DX: K56.609 Unspecified intestinal obstruction, unspecified as to partial versus complete obstruction (principal); K80.00 Calculus of gallbladder with acute cholecystitis without obstruction; R07.9 Chest pain, unspecified; I25.10 Atherosclerotic heart disease of native coronary artery without angina pectoris; Z95.1 Presence of aortocoronary bypass graft; Z95.5 Presence of coronary angioplasty implant and graft
CPT/HCPCS: 36415 ×3; 47563; 71045; 74019; 74177; 74300; 76705; 80048 ×2; 80076; 81003; 82550; 82553; 83690; 83735; 83880; 84484 ×3; 85025 ×3; 85610; 85730 ×2; 88304; 93005; 93306; 99285; G0378 ×2; J1100; J2405 ×3; J2543; J2710; J3010 ×3; J7030 ×3; Q9967 ×2

== ENCOUNTER 2018-07-09 08:11 | Emergency (ER) | payer OTHER ==
--- OUTSIDE RECORDS SUMMARY | 2018-07-09 08:13 | XMS REPORT ---
:1950 Author Organization eClinicalWorks Care Team Providers Name Role Phone Isidoro Patel Provider Role Unavailable Allergies No Known Allergies Problems Problem Type Condition Code Onset Dates Condition Status Problem Arteriosclerosis of coronary artery I25.10 Active Problem Chronic back pain M54.9 Active Problem Vitamin B 12 deficiency E53.8 Active Problem Bilateral tinnitus H93.13 Active Assessment History of coronary artery bypass Z95.1 Active graft Problem Hyperlipidemia E78.5 Active Assessment Gout M10.9 Active Assessment Stented coronary artery Z95.5 Active Problem S/P laparoscopic cholecystectomy Z90.49 Active Problem Thrombocytopenia D69.6 Active Problem Stented coronary artery Z95.5 Active Problem Benign essential HTN I10 Active Problem Gout M10.9 Active Assessment Thrombocytopenia D69.6 Active Assessment Hyperlipidemia E78.5 Active Assessment Arteriosclerosis of coronary artery I25.10 Active Assessment S/P laparoscopic cholecystectomy Z90.49 Active Problem History of coronary artery bypass Z95.1 Active graft Problem Benign paroxysmal positional vertigo H81.10 Active Assessment Benign essential HTN I10 Active Problem Heartburn R12 Active Assessment Vitamin B 12 deficiency E53.8 Active Problem Irritable bowel syndrome with K58.0 Active diarrhea Medications Medication Code Code Instructions Start End Status Dosage System Date Date Lovastatin [facility] 22409443433 40 MG Orally Active 1 tablet Once a day with a meal Allopurinol [facility] 45075208238 300 MG Orally Active 1 tablet Once a day Vasotec [facility] 51311265022 20 MG Orally Active 1 tablet Once a day Omeprazole [facility] 95952190087 10 MG Orally Active 1 capsule Once a day Meclizine HCl [facility] 98393477535 25 MG Orally Active 1 tablet Once a day as needed Results No Known Results Summary Purpose eClinicalWorks Submission
[2018-07-09] MEDS ORDERED: NA CHLORIDE 0.9% 1,000 ML ONE (08:30)
[2018-07-09] MEDS ORDERED: dilTIAZem HCl 25 MG/5 ML VIAL IV ONE (08:30)
[2018-07-09 08:36] LABS: Absolute Lymphocytes (CBC) 1.1 K/uL (0.7-4.9); Absolute Monocytes 0.5 K/uL (0.1-1.3); Absolute Neutrophil 3.8 K/uL (1.8-8.0); Basophils % 0.5 % (0-1.3); Eosinophils % 6.7 % (0-4.4); Hematocrit 47.7 % (39.6-49.0); Lymphocytes % 19.4 % (15.3-44.8); MPV 9.5 fL (7.6-11.3); Monocytes % 8.7 % (3.3-12.3); RBC Red Blood Cell Count 5.08 M/uL (4.33-5.43)
[2018-07-09 08:37] LABS: Protime INR 1.04
[2018-07-09] MEDS ORDERED: HEPARIN 5000 UNIT/ML 1 ML VIAL ONE (08:41)
[2018-07-09] MEDS ORDERED: HEPARIN/D5W 25,000 UNIT/500 ML BAG IV ONE (08:41)
[2018-07-09] MEDS ORDERED: ONDANSETRON 4 MG/2 ML VIAL ONE (08:47)
[2018-07-09 08:48] LABS: ALT/SGPT 21 U/L (12-78); AST/SGOT 17 U/L (15-37); Albumin 4.1 g/dL (3.4-5.0); Alkaline Phosphatase 85 U/L (45-117); BUN Blood Urea Nitrogen 17 mg/dL (7-18); Bicarbonate 29 mmol/L (21-32); Bilirubin Total 0.6 mg/dL (0.2-1.0); Glucose Level 106 mg/dL (74-106); Magnesium 2.4 mg/dL (1.8-2.4); NT PRO-BNP 106 pg/mL (<125); Potassium 3.6 mmol/L (3.5-5.1); Protein, Total 8.2 g/dL (6.4-8.2); Sodium Level 142 mmol/L (136-145); Troponin (Emerg Dept Use Only) < 0.02 ng/mL (0.0-0.045)
[2018-07-09] MEDS ORDERED: MORPHINE 4 MG/ML SYR ONE ×2 (08:49→09:56)
--- NOTE | 2018-07-09 09:15 | RAD REPORT ---
EXAM DESCRIPTION: RAD - Chest Single View - 07/09/2018 8:52 am CLINICAL HISTORY: CHEST PAIN Chest pain. COMPARISON: Chest Single View dated 12/31/2017; CHEST SINGLE VIEW dated 06/22/2015; CHEST SINGLE VIEW dated 06/21/2015; CHEST SINGLE VIEW dated 12/15/2014 FINDINGS: Portable technique limits examination quality. The lungs are grossly clear. The heart is upper limit of normal in size with sternotomy wires present . No displaced fractures. IMPRESSION: No acute intrathoracic process suspected.
[2018-07-09] MEDS ORDERED: DILTIAZEM 125 MG in NS 125 ML IVPB ONE (10:00)
--- NOTE | 2018-07-09 11:03 | EDPHYS ---
Physician Documentation [facility] Name: Eric Bloom Age: 67 yrs Sex: Male : 1950 Arrival Date: 07/09/2018 Time: 08:13 Bed 8 Private MD: ED Physician Yobany Sepulveda HPI: 07/09 08:24 This 67 yrs old Male presents to ER via EMS with complaints of chest pain. ps1 08:24 Hx of CAD, stent CABG, HTN, HLD, Afib not on meds, presenting for CP that started this ps1 morning upon awakening. Pain localized substernal without radiation, associated with diaphoresis. Pain mild now. Afib RVR. 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 . Historical: - Allergies: 08:32 No Known Allergies; jl7 - Home Meds: 08:32 Allopurinol Oral [Active]; aspirin 81 mg Oral chew 1 tab once daily [Active]; Enalapril jl7 Oral [Active]; Lovastatin Oral [Active]; Vitamin B-12 Oral [Active]; omeprazole Oral [Active]; - PMHx: 08:32 GERD; Hypertension; Atrial Fib; Gout; Myocardial infarction; jl7 - PSHx: 08:32 CABG; jl7 - Immunization history:: Adult Immunizations unknown. - Social history:: Smoking status: Patient/guardian denies using tobacco. - Ebola Screening: : No symptoms or risks identified at this time. ROS: 08:24 Constitutional: Negative for fever, chills, and weight loss, Eyes: Negative for injury, ps1 pain, redness, and discharge, Abdomen/GI: Negative for abdominal pain, nausea, vomiting, diarrhea, and constipation, Back: Negative for injury and pain, MS/Extremity: Negative for injury and deformity, Skin: Negative for injury, rash, and discoloration, Neuro: Negative for headache, weakness, numbness, tingling, and seizure. 08:24 Cardiovascular: Positive for chest pain, palpitations. 08:24 Respiratory: Positive for dyspnea on exertion. Exam: 08:28 Constitutional: This is a well developed, well nourished patient who is awake, alert, ps1 and in no acute distress. Head/Face: Normocephalic, atraumatic. Eyes: Pupils equal round and reactive to light, extra-ocular motions intact. Lids and lashes normal. Conjunctiva and sclera are non-icteric and not injected. ENT: Nares patent. No nasal discharge, no septal abnormalities noted. Tympanic membranes are normal and external auditory canals are clear. Oropharynx with no redness, swelling, or masses, exudates, or evidence of obstruction, uvula midline. Mucous membranes moist. Neck: Trachea midline, no thyromegaly or masses palpated, and no cervical lymphadenopathy. Supple, full range of motion without nuchal rigidity, or vertebral point tenderness. No Meningismus. Respiratory: Lungs have equal breath sounds bilaterally, clear to auscultation and percussion. No rales, rhonchi or wheezes noted. No increased work of breathing, no retractions or nasal flaring. Abdomen/GI: Soft, non-tender, with normal bowel sounds. No distension or tympany. No guarding or rebound. No evidence of tenderness throughout. Skin: Warm, dry with normal turgor. Normal color with no rashes, no lesions, and no evidence of cellulitis. 08:28 Chest/axilla: midline sternotomy scar. 08:28 Cardiovascular: Rate: tachycardic, Rhythm: irregularly irregular, Pulses: no pulse deficits are appreciated. Vital Signs: 08:32 BP 185 / 121; Pulse 132; Resp 26 S; Pulse Ox 98% on R/A; Pain 2/; jl7 08:35 Weight 84 kg; aa5 08:53 BP 126 / 114; Pulse 118; Resp 24 S; Pulse Ox 97% on R/A; jl7 09:04 BP 150 / 98; Pulse 97; Resp 19 S; Pulse Ox 97% on R/A; jl7 09:15 BP 145 / 99; Pulse 109; Resp 20 S; Pulse Ox 96% on R/A; jl7 09:30 BP 163 / 109; Pulse 106; Resp 20 S; Pulse Ox 99% on R/A; jl7 09:45 BP 165 / 94; Pulse 121; Resp 22 S; Pulse Ox 98% on R/A; Pain 6/10; jl7 09:55 BP 148 / 83; Pulse 91; Resp 19; Pulse Ox 98% on R/A; jl7 10:00 BP 139 / 70; Pulse 87; Resp 17 S; Pulse Ox 97% on R/A; Pain 2/10; jl7 10:10 BP 161 / 87; Pulse 91; Resp 19 S; Pulse Ox 99% on R/A; jl7 10:20 BP 139 / 87; Pulse 94; Resp 18 S; Pulse Ox 99% on R/A; jl7 10:30 BP 143 / 93; Pulse 91; Resp 16; Pulse Ox 99% on R/A; jl7 10:40 BP 149 / 80; Pulse 96; Resp 16; Pulse Ox 97% on R/A; jl7 10:50 BP 141 / 90; Pulse 90; Resp 18 S; Pulse Ox 98% on R/A; jl7 11:01 BP 126 / 67; Pulse 95; Resp 16; Pulse Ox 96% ; Pain 0/10; jl7 11:15 BP 122 / 81; Pulse 70; Resp 18; Pulse Ox 97% on R/A; jl7 11:30 BP 114 / 76; Pulse 79; Resp 16 S; Pulse Ox 96% on R/A; jl7 11:45 BP 112 / 76; Pulse 79; Resp 16 S; Pulse Ox 98% on R/A; jl7 12:00 BP 118 / 85; Pulse 76; Resp 18 S; Pulse Ox 98% on R/A; jl7 MDM: 08:15 Patient medically screened. ps1 11:02 Data reviewed: vital signs, nurses notes. Data interpreted: color television console monitor: rate is 90 ps1 beats/min, rhythm is atrial fibrillation. Medication response: cardizem, rate improved. Response to treatment: the patient's symptoms have mildly improved after treatment. 07/09 08:14 Order name: CBC with Diff; Complete Time: 08:59 ps1 07/09 08:14 Order name: Magnesium; Complete Time: 08:59 ps1 07/09 08:14 Order name: NT PRO-BNP; Complete Time: 08:59 ps1 07/09 08:14 Order name: PT-INR; Complete Time: 08:59 ps1 07/09 08:14 Order name: Troponin (emerg Dept Use Only); Complete Time: 08:59 ps1 07/09 08:14 Order name: CMP; Complete Time: 08:59 ps1 07/09 08:14 Order name: XRAY Chest (1 view); Complete Time: 09:17 ps1 07/09 08:36 Order name: Ptt, Activated; Complete Time: 09:18 aa5 07/09 08:14 Order name: EKG; Complete Time: 08:15 ps1 07/09 08:14 Order name: Cardiac monitoring; Complete Time: 08:16 07/09 08:14 Order name: EKG - Nurse/Tech; Complete Time: 08:07/09 08:14 Order name: IV Saline Lock; Complete Time: 08:07/09 08:14 Order name: Labs collected and sent; Complete Time: 08:07/09 08:14 Order name: O2 Per Protocol; Complete Time: 08:07/09 08:14 Order name: O2 Sat Monitoring; Complete Time: 08:07/09 08:47 Order name: EKG Electrocardiogram EDMS Administered Medications: 08:20 Not Given (EMS administered in route): Aspirin 325 mg PO once jl7 08:24 Drug: NS 0.9% 1000 ml Route: IV; Rate: 1 bolus; Site: right antecubital; ca1 09:30 Follow up: Response: No adverse reaction; IV Status: Completed infusion jl7 08:35 Drug: Cardizem 10 mg Route: IVP; Site: right antecubital; jl7 08:45 Follow up: Response: No adverse reaction; Cardiac rhythm changed jl7 08:45 Drug: Heparin (MD-Bolus No thrombolytic) - HEParin 60 units/kg {Co-Signature: aa5 fuentes (Karen Benson RN).} Route: IVP; Site: right antecubital; 09:53 Follow up: Response: No adverse reaction jl7 08:45 Drug: Zofran 4 mg Route: IVP; Site: left hand; ca1 09:00 Follow up: Response: No adverse reaction jl7 08:46 Drug: Heparin (MD Drip) 12 units/kg/hr - (HEParin 11144 units, D5W 500 ml) jl7 {Co-Signature: aa5 (Karen Benson RN).} Route: IV; Rate: calculated rate; Site: right antecubital; 12:20 Follow up: IV Status: Infusion continued upon transfer jl7 08:48 Drug: morphine 4 mg Route: IVP; Site: left hand; ca1 09:00 Follow up: Response: No adverse reaction; Pain is decreased jl7 09:40 Drug: Cardizem 10 mg Route: IVP; Site: left hand; jl7 09:54 Follow up: Response: No adverse reaction; Cardiac rhythm is unchanged jl7 09:50 Drug: morphine 4 mg Route: IVP; Site: left hand; 7 10:15 Follow up: Response: No adverse reaction; Pain is decreased jl7 10:05 Drug: Cardizem 10 mg/hr Route: IV; Rate: calculated rate; Site: left hand; 7 12:20 Follow up: IV Status: Infusion continued upon transfer jl7 Disposition: 11:02 Critical Care:. ps1 Disposition: 07/09/18 11:02 Transfer ordered to [facility]. Diagnosis are Afib RVR, Chest pain. - Reason for transfer: Higher level of care. - Accepting physician is Arash Richey. - Condition is Fair. - Problem is new. - Symptoms have improved. Critical care time excluding procedures: 11:02 Critical care time: Bedside Care: 30 minutes, Consultation: 10 minutes. Total time: 40 ps1 minutes Signatures: Dispatcher [employer] EDMaine Che RN RN jl7 Yobany Sepulveda MD MD ps1 Grace Orozco RN RN ca1 Karen Benson RN aa5 Corrections: (The following items were deleted from the chart) 13:26 11:02 07/09/2018 11:02 Transfer ordered to [facility]. Diagnosis is jl7 Afib RVR; Chest pain. Reason for transfer: Higher level of care. Accepting physician is Arash Richey. Condition is Fair. Problem is new. Symptoms have improved. ps1
--- NOTE | 2018-07-09 11:03 | ER ---
Nurse's Notes [facility] Name: Eric Bloom Age: 67 yrs Sex: Male : 1950 Arrival Date: 07/09/2018 Time: 08:13 Bed 8 Private MD: Diagnosis: Afib RVR;Chest pain Presentation: 07/09 08:26 Presenting complaint: EMS states: Pt woke up at 0730 with non radiating substernal jl7 chest pain, 324 mg Aspirin given in route. Transition of care: patient was not received from another setting of care. Onset of symptoms was July 09, 2018 at 07:30. Risk Assessment: Do you want to hurt yourself or someone else? Patient reports no desire to harm self or others. Initial Sepsis Screen: Does the patient meet any 2 criteria? No. Patient's initial sepsis screen is negative. Does the patient have a suspected source of infection? No. Patient's initial sepsis screen is negative. Care prior to arrival: Medication(s) given: ASA, 81 mg, x 4, BP 169/109. 08:26 Method Of Arrival: EMS: [facility] 7 08:26 Acuity: NADJA 2 jl7 Triage Assessment: 08:32 General: Appears in no apparent distress. uncomfortable, Behavior is calm, cooperative, jl7 appropriate for age. Pain: Complains of pain in mid-sternal area Pain does not radiate. Pain currently is 2 out of 10 on a pain scale. Quality of pain is described as pressure, Pain began suddenly, 1 hour ago. EENT: No signs and/or symptoms were reported regarding the EENT system. Neuro: Level of Consciousness is awake, alert, obeys commands, Oriented to person, place, time, situation. Cardiovascular: Heart tones present Patient's skin is warm and dry. Rhythm is atrial fibrillation with rapid ventricular response. Respiratory: Reports shortness of breath Airway is patent Respiratory effort is even, unlabored, Respiratory pattern is regular, symmetrical, Breath sounds are clear bilaterally. GI: No signs and/or symptoms were reported involving the gastrointestinal system. : No signs and/or symptoms were reported regarding the genitourinary system. Derm: Skin is pink, warm \T\ dry. Musculoskeletal: No signs and/or symptoms reported regarding the musculoskeletal system. Historical: - Allergies: 08:32 No Known Allergies; jl7 - Home Meds: 08:32 Allopurinol Oral [Active]; aspirin 81 mg Oral chew 1 tab once daily [Active]; Enalapril jl7 Oral [Active]; Lovastatin Oral [Active]; Vitamin B-12 Oral [Active]; omeprazole Oral [Active]; - PMHx: 08:32 GERD; Hypertension; Atrial Fib; Gout; Myocardial infarction; jl7 - PSHx: 08:32 CABG; jl7 - Immunization history:: Adult Immunizations unknown. - Social history:: Smoking status: Patient/guardian denies using tobacco. - Ebola Screening: : No symptoms or risks identified at this time. Screenin:54 Abuse screen: Denies threats or abuse. Denies injuries from another. Nutritional jl7 screening: No deficits noted. Tuberculosis screening: No symptoms or risk factors identified. Fall Risk IV access (20 points). Total Tiwari Fall Scale indicates No Risk (0-24 pts). Assessment: 08:39 General: See triage assessment. jl7 09:15 Reassessment: Patient appears in no apparent distress at this time. Patient denies pain jl7 at this time. Patient states feeling better. Patient states symptoms have improved. 09:40 Reassessment: Dr. Sepulveda at bedside discussing plan of care. Pt c/o increased chest jl7 pain, rated 6/10, HR 140 on the monitor. VO order from Dr. Sepulveda for 10 mg Cardizem IVP, 10 mg/ hr Cardizem drip until HR is maintained less then 100 then titrate to 5 mg/hr; 4 mg Morphine IVP. 10:14 Reassessment: Pt reports decreased pain and discomfort, friends at bedside at this time.jl7 10:55 Reassessment: Patient and/or family updated on plan of care and expected duration. Pain jl7 level reassessed. Patient is alert, oriented x 3, equal unlabored respirations, skin warm/dry/pink. Cardizem drip decreased to 5 mg/hr at this time. Patient denies pain at this time. 11:40 Reassessment: Report given to KRYSTINA Torrez at [facility]. aa5 11:43 Reassessment: Patient is alert, oriented x 3, equal unlabored respirations, skin aa5 warm/dry/pink. Patient denies pain at this time. Awaiting EMS for transport, pt notified of wait time. . Vital Signs: 08:32 BP 185 / 121; Pulse 132; Resp 26 S; Pulse Ox 98% on R/A; Pain 2/10; jl7 08:35 Weight 84 kg; aa5 08:53 BP 126 / 114; Pulse 118; Resp 24 S; Pulse Ox 97% on R/A; jl7 09:04 BP 150 / 98; Pulse 97; Resp 19 S; Pulse Ox 97% on R/A; jl7 09:15 BP 145 / 99; Pulse 109; Resp 20 S; Pulse Ox 96% on R/A; jl7 09:30 BP 163 / 109; Pulse 106; Resp 20 S; Pulse Ox 99% on R/A; jl7 09:45 BP 165 / 94; Pulse 121; Resp 22 S; Pulse Ox 98% on R/A; Pain 6/10; jl7 09:55 BP 148 / 83; Pulse 91; Resp 19; Pulse Ox 98% on R/A; jl7 10:00 BP 139 / 70; Pulse 87; Resp 17 S; Pulse Ox 97% on R/A; Pain 2/10; jl7 10:10 BP 161 / 87; Pulse 91; Resp 19 S; Pulse Ox 99% on R/A; jl7 10:20 BP 139 / 87; Pulse 94; Resp 18 S; Pulse Ox 99% on R/A; jl7 10:30 BP 143 / 93; Pulse 91; Resp 16; Pulse Ox 99% on R/A; jl7 10:40 BP 149 / 80; Pulse 96; Resp 16; Pulse Ox 97% on R/A; jl7 10:50 BP 141 / 90; Pulse 90; Resp 18 S; Pulse Ox 98% on R/A; jl7 11:01 BP 126 / 67; Pulse 95; Resp 16; Pulse Ox 96% ; Pain 0/10; jl7 11:15 BP 122 / 81; Pulse 70; Resp 18; Pulse Ox 97% on R/A; jl7 11:30 BP 114 / 76; Pulse 79; Resp 16 S; Pulse Ox 96% on R/A; jl7 11:45 BP 112 / 76; Pulse 79; Resp 16 S; Pulse Ox 98% on R/A; jl7 12:00 BP 118 / 85; Pulse 76; Resp 18 S; Pulse Ox 98% on R/A; jl7 ED Course: 08:13 Patient arrived in ED. iw 08:13 Yobany Sepulveda MD is Attending Physician. ps1 08:14 Maine Chirinos RN is Primary Nurse. jl7 08:28 Triage completed. jl7 08:30 Initial lab(s) drawn, by ED staff, sent to lab. Inserted saline lock: 20 gauge in right jl7 antecubital area, using aseptic technique. Blood collected. Inserted by KRYSTINA Jones. 08:32 Arm band placed on right wrist. jl7 08:44 EKG done, by reliability technologist. reviewed by Yobany Sepulveda MD. tc 08:44 EKG done, by ED staff, reviewed by Yobany Sepulveda MD. tc 08:45 Inserted saline lock: 20 gauge in left hand, using aseptic technique. jl7 08:46 X-ray completed. Portable x-ray completed in exam room. Patient tolerated procedure jb2 well. 08:53 XRAY Chest (1 view) In Process Unspecified. EDMS 08:55 Patient has correct armband on for positive identification. Placed in gown. Bed in low jl7 position. Call light in reach. Side rails up X2. brake lining curer on. Pulse ox on. NIBP on. Warm blanket given. 12:20 No provider procedures requiring assistance completed. Patient transferred, IV remains jl7 in place. intact, No redness/swelling at site. Administered Medications: 08:20 Not Given (EMS administered in route): Aspirin 325 mg PO once jl7 08:24 Drug: NS 0.9% 1000 ml Route: IV; Rate: 1 bolus; Site: right antecubital; ca1 09:30 Follow up: Response: No adverse reaction; IV Status: Completed infusion jl7 08:35 Drug: Cardizem 10 mg Route: IVP; Site: right antecubital; jl7 08:45 Follow up: Response: No adverse reaction; Cardiac rhythm changed jl7 08:45 Drug: Heparin (ID-Bolus No thrombolytic) - HEParin 60 units/kg {Co-Signature: aa5 jl7 (Karne Benson RN).} Route: IVP; Site: right antecubital; 09:53 Follow up: Response: No adverse reaction jl7 08:45 Drug: Zofran 4 mg Route: IVP; Site: left hand; ca1 09:00 Follow up: Response: No adverse reaction jl7 08:46 Drug: Heparin (ID Drip) 12 units/kg/hr - (HEParin 81221 units, D5W 500 ml) jl7 {Co-Signature: aa5 (Karen Benson RN).} Route: IV; Rate: calculated rate; Site: right antecubital; 12:20 Follow up: IV Status: Infusion continued upon transfer jl7 08:48 Drug: morphine 4 mg Route: IVP; Site: left hand; ca1 09:00 Follow up: Response: No adverse reaction; Pain is decreased jl7 09:40 Drug: Cardizem 10 mg Route: IVP; Site: left hand; jl7 09:54 Follow up: Response: No adverse reaction; Cardiac rhythm is unchanged jl7 09:50 Drug: morphine 4 mg Route: IVP; Site: left hand; jl7 10:15 Follow up: Response: No adverse reaction; Pain is decreased jl7 10:05 Drug: Cardizem 10 mg/hr Route: IV; Rate: calculated rate; Site: left hand; jl7 12:20 Follow up: IV Status: Infusion continued upon transfer jl7 Outcome: 11:02 ER care complete, transfer ordered by . ps1 12:20 Transferred by ground EMS to [facility], Transfer form completed. jl7 12:20 Condition: stable 12:20 Discharge instructions given to patient, Instructed on the need for transfer, Demonstrated understanding of instructions. 13:26 Patient left the ED. jl7 Signatures: Dispatcher [employer] EDMS Pa Pereira jb2 Gail Richey RN RN iw Calderon, Audri RN RN aa5 Yolanda Lopez, foreclosure specialist EKG Ttc Maine Chirinos RN RN jl7 Yobany Sepulveda MD MD ps1 Grace Orozco RN RN ca1 Karen Benson RN aa5 Corrections: (The following items were deleted from the chart) 13:24 13:23 Transferred by ground EMS to [facility], Transfer form completed. jl7 jl7 13:24 13:23 Condition: stable jl7 jl7 13:24 13:23 Discharge instructions given to patient, Instructed on the need for transfer, jl7 Demonstrated understanding of instructions, jl7 13:26 13:25 IV Status: Infusion continued upon transfer jl7 jl7
--- NOTE | 2018-07-09 11:59 | EKG ---
Test Date: 2018-07-09 Test Time: 08:08:38 Client Success Director: MEASUREMENT RESULTS: Intervals: Rate: 112 [place]: QRSD: 96 QT: 344 QTc: 469 [place]: P: [place]: QRS: 38 T: 52 INTERPRETIVE STATEMENTS: Atrial fibrillation with rapid ventricular response ST depression, consider subendocardial injury Abnormal ECG Compared to ECG 12/31/2017 03:14:21 Sinus bradycardia no longer present Sinus arrhythmia no longer present ST (T wave) deviation still present Electronically Signed On 07-09-18 11:58:18 FLAT MACHINE CUTTER by Ross Lechuga
--- NOTE | 2018-07-09 11:59 | EKG ---
Test Date: 2018-07-09 Test Time: 08:35:44 Grips: JASPER MEASUREMENT RESULTS: Intervals: Rate: 85 [place]: QRSD: 98 QT: 382 QTc: 454 [place]: P: [place]: QRS: 52 T: 28 INTERPRETIVE STATEMENTS: Atrial fibrillation Nonspecific ST abnormality Abnormal ECG Compared to ECG 07/09/2018 08:08:38 No significant changes Electronically Signed On 07-09-18 11:58:10 BATTERY CONTAINER INSPECTOR by Ross Lechuga
[2018-07-09 14:11] VITALS: O2SAT 98
[2018-07-09 14:12] VITALS: BP 118/85
== END 2018-07-09 13:26 | disposition short-term general hospital (02) ==
LOC: ER 08:11
DX: I48.2 Chronic atrial fibrillation (principal); I10 Essential (primary) hypertension; K21.9 Gastro-esophageal reflux disease without esophagitis; I21.9 Acute myocardial infarction, unspecified
CPT/HCPCS: 36415; 71045; 80053; 83735; 83880; 84484; 85025; 85610; 85730; 93005 ×2; 99285; J1644; J2405; J7030

== ENCOUNTER 2021-09-01 11:51 | Emergency (ER) | payer OTHER ==
--- OUTSIDE RECORDS SUMMARY | 2021-09-01 11:54 | XMS REPORT | Continuity of Care Document ---
:1950 Author Organization [facility] t Address [address] [place] [address] Care Team Providers Name Role Phone Isidoro Patel Attending Clinician Unavailable Problems This patient has no known problems. Allergies, Adverse Reactions, Alerts This patient has no known allergies or adverse reactions. Medications Ordered Filled Start Stop Current Ordering Indication Dosage Frequency Signature Comments Components Source Medication Medication Date Date Medication? Clinician (SIG) Name Name Meloxicam Meloxicam 2020-0 2020- No [place] [address] [facility] 6-02 07-08 [facility] Fluticasone Fluticasone 2018-0 Yes [place] [address] [facility] Propionate Propionate 903 [place] each Sunny es - 00:00: nostril [facility]oria 00 l [facility] Lovastatin Lovastatin Yes [place] [address] [facility] with a [facility] - meal [facility] Allopurinol Allopurinol Yes [place] [address] [facility] Omeprazole Omeprazole Yes [place] [address] [facility] Vitamin B12 Vitamin B12 Yes [place] [address] [facility] Aspirin Aspirin Yes [place] [address] [facility] Enalapril Enalapril Yes [place] [address] [facility] Maleate Maleate Dominguez kes - [facility] Nitroglycer Nitroglycer Yes [place] not [facility] in [facility] defined [facility] MethylPREDN MethylPREDN Yes [place] not [facility] ISolone ISolone [facility] defined [facility] PredniSONE PredniSONE Yes [place] not [facility] defined [facility] Amoxicillin Amoxicillin Yes [place] not [facility] -Pot -Pot [place] defined [facility] Clavulanate Clavulanate [facility] Immunizations Ordered Filled Immunization Date Status Comments Sour e Immunization Name Name Solange Narvaez 2019-03-[address] [facility] Procedures This patient has no known procedures. Encounters Start End Encounter Admission Attending Care Care Encounter Source Date/Time Date/Time Type Type Clinicians Facility Department ID 2021-07-21 Outpatient , [facility] 13:[facility]:16 Isidoro [id number] [facility] 2021-07-21 Outpatient , [facility] 13:28:21 Isidoro [id number] [facility] 2021-07-21 Outpatient , [facility] 12[facility]43:43 Isidoro [id number] [facility] 2021-07-21 Outpatient , [facility] 12:43:20 Isidoro [id number] [facility] 2021-07-21 Outpatient , [facility] 11:35:38 Isidoro [id number] [facility] 2021-07-21 Outpatient , [place] [id number] [facility] 11:30:24 Isidoro [id number] [facility] 2021-07-21 Outpatient , [place] [id number] [facility] 11:30:17 Isidoro [id number] [facility] 2021-07-21 Outpatient , [facility] 11:29:51 Isidoro [id number] [facility] 2021-07-21 Outpatient , [facility] 11[facility]29:14 Isidoro [id number] [facility] 2021-07-21 Outpatient , [facility] 11:24:36 Isidoro [id number] [facility] 2021-07-21 Outpatient , [facility] 11:19:56 Isidoro [id number] [facility] 2021-07-21 Outpatient , [facility] 11:17:[facility] Isidoro [id number] [facility] 2021-07-21 [facility] 11:17[facility] Isidoro [id number] [facility] 2021-08-13 2021-08-13 ambulatory [facility] [id number] [facility] 2021-08-04 2021-08-04 ambulatory [facility] [id number] [facility] 2021-03-26 2021-03-26 Outpatient [facility] [id number] [facility] 2021-02-10 2021-02-10 Outpatient [facility] [id number] [facility] 2021-01-13 2021-01-13 Outpatient [facility] [id number] [facility] 2021-01-13 2021-01-13 Outpatient [facility] [id number] [facility] 2020-09-18 2020-09-18 Outpatient [facility] [id number] [facility] 2020-09-16 2020-09-16 [facility] [id number] [facility] 2020-04-13 2020-04-13 [facility] [id number] [facility] 2020-03-20 2020-03-20 [facility] [id number] [facility] 2020-02-06 2020-02-06 [facility] [id number] [facility] 10:22:00 10:22:[address] [facility] - Drive [facility] Medicine Medicine Outpati ent Clinics 2020-01-30 2020-01-30 [facility] [id number] 16:14:00 16:14:[address] [facility] - Drive [facility] Medicine Medicine Outpati ent Clinics 2020-01-28 2020-01-28 [facility] [id number] [facility] 11:51:00 11:51:[address] Luke [facility] - Drive [facility] Medicine Outpati ent Clinics 2020-01-23 2020-01-23 [facility] [id number] 15:43:00 15:43:[address] Luke [facility] - Drive [facility] Medicine Outpati ent Clinics 2020-01-01 2020-01-01 [facility] [id number] 09:45:00 09:45:[address] Luke [facility] - Drive [facility] Medicine Outpati ent Clinics 2019-12-31 2019-12-31 [facility] [id number] [address] 15:19:00 15:19:00 t [facility] 2019-12-31 2019-12-31 [facility] [id number] 11:00:00 11:00:00 t [facility] ent Clinics 2019-12-04 2019-12-04 [facility] [id number] 10:00:00 10:00:00 t [employer] [facility] Medicine Outpati ent Clinics 2019-12-04 2019-12-04 [facility] [id number] [address] 09:45:00 09:45:00 t [place] [employer] [facility] Medicine Outpati ent Clinics 2019-11-26 2019-11-26 [facility] [id number] [facility] 13:30:00 13:30:00 t [facility] ent Clinics 2019-11-14 2019-11-14 [facility] [id number] [facility] 14:45:00 14:45:00 t [employer] [facility] Medicine Outpati ent Clinics 2019-11-14 2019-11-14 [facility] [id number] [facility] 09:26:00 09:26:00 t [employer] [facility] Medicine Outpati ent Clinics 2019-10-24 2019-10-24 [facility] [id number] [facility] 13:30:00 13:30:00 t [employer] [facility] Medicine Outpati ent Clinics 2019-06-04 2019-06-04 [facility] [id number] [facility] 10:30:00 10:30:00 t [employer] [facility] Medicine Outpati ent Clinics 2019-05-27 2019-05-27 [facility] [id number] [facility] 16:33:00 16:33:00 t [employer] [facility] Medicine Outpati ent Clinics 2019-03-27 2019-03-27 [facility] [id number] [facility] 14:30:00 14:30:00 t [employer] [facility] Medicine Outpati ent Clinics 2019-02-26 2019-02-26 [facility] [id number] 16:00:00 16:00:00 t [employer] [facility] Outpati ent Clinics 2018-08-01 2018-08-01 [facility] [id number] 10:00:00 10:00:00 t [employer] [facility] Outpati ent Clinics 2018-07-17 2018-07-17 [facility] [id number] [facility] 11:06:00 11:06:00 t [employer] [facility] Medicine Outpati ent Clinics 2018-01-19 2018-01-19 [facility] [id number] [facility] 09:30:00 09:30:00 t [employer] [facility] Outpati ent Clinics Results This patient has no known results.
[2021-09-01 12:26] LABS: Hematocrit 44.3 % (39.6-49.0); Lymphocytes % 18.5 % (15.3-44.8); MPV 8.9 fL (7.6-11.3); RBC Red Blood Cell Count 4.83 M/uL (4.33-5.43)
[2021-09-01] MEDS ORDERED: FAMOTIDINE 20 MG/2 ML VIAL IV ONE (12:30)
[2021-09-01] MEDS ORDERED: METOPROLOL TAR 25 MG TAB ONE (12:30)
[2021-09-01] MEDS ORDERED: HEPARIN 5000 UNIT/ML 1 ML VIAL ONE ×2 (12:30→12:37)
[2021-09-01] MEDS ORDERED: CLOPIDOGREL 75 MG TABLET ONE (12:30)
[2021-09-01 12:31] LABS: Protime INR 1.02
[2021-09-01] MEDS ORDERED: HEPARIN/D5W 25,000 UNIT/500 ML BAG IV ONE (12:31)
[2021-09-01 12:47] LABS: Albumin 3.8 g/dL (3.4-5.0); Bilirubin Direct 0.1 mg/dL (0-0.2); Bilirubin Total 0.5 mg/dL (0.2-1.0); Magnesium 2.1 mg/dL (1.8-2.4); Potassium 3.9 mmol/L (3.5-5.1); Protein, Total 7.8 g/dL (6.4-8.2); Troponin High Sensitivity 5.9 pg/mL (<58.9)
--- NOTE | 2021-09-01 13:16 | EDPHYS ---
Physician Documentation [facility] Name: Eric Bloom Age: 70 yrs Sex: Male : 1950 Arrival Date: 09/01/2021 Time: 11:57 Bed 4 Private MD: ED Physician Surinder Priest HPI: 09/01 13:08 This 70 yrs old Male presents to ER via EMS with complaints of chest pain jovan with exertion. 13:08 The patient has shortness of breath with light activity. Onset: The symptoms/episode jovan began/occurred just prior to arrival. Duration: The symptoms are intermittent, with episodes lasting minutes at a time. The patient's shortness of breath is aggravated by exertion, light activity, is alleviated by rest, application of supplemental oxygen. The patient or guardian reports chest pain that is located primarily in the substernal area. Onset: just prior to arrival. The pain does not radiate. Severity of symptoms: At their worst the symptoms were mild moderate in the emergency department the symptoms have improved markedly. Associated signs and symptoms: Pertinent positives: shortness of breath. Historical: - Allergies: 15:14 No Known Allergies; ap3 - Home Meds: 12:07 Allopurinol Oral [Active]; aspirin 81 mg Oral chew 1 tab once daily [Active]; ap3 Lovastatin Oral [Active]; Enalapril Oral [Active]; Omeprazole Oral [Active]; - PMHx: 12:07 GERD; Gout; Hypertension; Myocardial infarction; Atrial Fib; ap3 - PSHx: 12:07 Bypass X's 4; cardiac stent X's 4; Cholecystectomy; ap3 - Immunization history:: Client reports receiving the 2nd dose of the Covid vaccine. - Social history:: Smoking status: Patient denies any tobacco usage or history of. - Family history:: not pertinent. ROS: 13:08 Constitutional: Negative for fever, chills, and weight loss, Eyes: Negative for injury, jovan pain, redness, and discharge, ENT: Negative for injury, pain, and discharge, Neck: Negative for injury, pain, and swelling, Abdomen/GI: Negative for abdominal pain, nausea, vomiting, diarrhea, and constipation, Back: Negative for injury and pain, : Negative for injury, bleeding, discharge, and swelling, MS/Extremity: Negative for injury and deformity, Skin: Negative for injury, rash, and discoloration, Neuro: Negative for headache, weakness, numbness, tingling, and seizure, Psych: Negative for depression, anxiety, suicide ideation, homicidal ideation, and hallucinations, Allergy/Immunology: Negative for hives, rash, and allergies, Endocrine: Negative for neck swelling, polydipsia, polyuria, polyphagia, and marked weight changes, Hematologic/Lymphatic: Negative for swollen nodes, abnormal bleeding, and unusual bruising. 13:08 Cardiovascular: Positive for chest pain, of the chest. 13:08 Respiratory: Negative for cough, shortness of breath. Exam: 13:08 Constitutional: This is a well developed, well nourished patient who is awake, alert, jovan and in no acute distress. Head/Face: Normocephalic, atraumatic. Eyes: Pupils equal round and reactive to light, extra-ocular motions intact. Lids and lashes normal. Conjunctiva and sclera are non-icteric and not injected. Cornea within normal limits. Periorbital areas with no swelling, redness, or edema. ENT: Nares patent. No nasal discharge, no septal abnormalities noted. Tympanic membranes are normal and external auditory canals are clear. Oropharynx with no redness, swelling, or masses, exudates, or evidence of obstruction, uvula midline. Mucous membranes moist. Neck: Trachea midline, no thyromegaly or masses palpated, and no cervical lymphadenopathy. Supple, full range of motion without nuchal rigidity, or vertebral point tenderness. No Meningismus. Chest/axilla: Normal chest wall appearance and motion. Nontender with no deformity. No lesions are appreciated. Cardiovascular: Regular rate and rhythm with a normal S1 and S2. No gallops, murmurs, or rubs. Normal PMI, no JVD. No pulse deficits. Respiratory: Lungs have equal breath sounds bilaterally, clear to auscultation and percussion. No rales, rhonchi or wheezes noted. No increased work of breathing, no retractions or nasal flaring. Abdomen/GI: Soft, non-tender, with normal bowel sounds. No distension or tympany. No guarding or rebound. No evidence of tenderness throughout. Back: No spinal tenderness. No costovertebral tenderness. Full range of motion. Male : Normal genitalia with no discharge or lesions. Skin: Warm, dry with normal turgor. Normal color with no rashes, no lesions, and no evidence of cellulitis. MS/ Extremity: Pulses equal, no cyanosis. Neurovascular intact. Full, normal range of motion. Neuro: Awake and alert, GCS 15, oriented to person, place, time, and situation. Cranial nerves II-XII grossly intact. Motor strength 5/5 in all extremities. Sensory grossly intact. Cerebellar exam normal. Normal gait. Psych: Awake, alert, with orientation to person, place and time. Behavior, mood, and affect are within normal limits. Vital Signs: 12:04 BP 178 / 89; Pulse 59; Resp 17; Temp 97.6(TE); Pulse Ox 100% ; Weight 86.18 kg; Height ap3 5 ft. 8 in. (172.72 cm); 13:08 BP 147 / 87; Pulse 51; Pulse Ox 99% ; ap3 14:15 BP 148 / 80; Pulse 48; Pulse Ox 100% ; ap3 15:06 BP 144 / 86; Pulse 48; Pulse Ox 100% ; ap3 12:04 Body Mass Index 28.89 (86.18 kg, 172.72 cm) ap3 MDM: 12:03 Patient medically screened. jovan 13:10 Differential diagnosis: Anemia Anxiety Reaction CHF exacerbation, Chronic Obstructive jovan Pulmonary Disease abnormal EKG, acute myocardial infarction, acute pericarditis, anxiety, chest wall pain, congestive heart failure hiatal hernia, pancreatitis, peptic ulcer disease, pneumonia, pneumothorax, pulmonary embolus, pneumonia, Pneumothorax pulmonary edema, reactive airway disease, Sepsis Unstable Angina. Antibiotic administration: Not indicated, the patient does not have an appreciated infiltrate. HEART Score: ECG: Normal (0), Age: > or = 65 years (2), Risk Factors: > or = 3 Risk factors for atherosclerotic disease (2), [Hypercholesterolemia] [Hypertension] [DM] [+ Family HX] Troponin: < or = 1 x Normal Limit (0). The patient was given aspirin in the Emergency Department. The patient's Wells Deep Vein Thrombosis Score was calculated as follows: Total Score: 0. This patient was found to be at low risk for a deep vein thrombosis by using the Well's assessment criteria Total Score: 0-2 Pts- Low Risk. The patient's pulmonary embolism risk score was calculated as follows: Total Score: 0-2 points. This patient was found to be at low risk for a pulmonary embolism by using the Well's assessment criteria Total Score: 0-2 points. This patient was found to be at low risk for a pulmonary embolism by using the Well's assessment criteria. RHIANNON Risk Score: 1 - patient's age is greater or equal to 65 years, 1 - Three or more CAD risk factors, 1- Known CAD, 1 - ASA use in past 7 days, TOTAL SCORE = 4. Immunization status: Pneumococcal vaccine: Influenza vaccine: Data reviewed: vital signs, nurses notes, lab test result(s), EKG, radiologic studies, plain films. Data interpreted: manager monitoring: rate is 51 beats/min, rhythm is regular, Pulse oximetry: on room air is 99 %. Test interpretation: by ED physician or midlevel provider: ECG, plain radiologic studies. Counseling: I had a detailed discussion with the patient and/or guardian regarding: the historical points, exam findings, and any diagnostic results supporting the discharge/admit diagnosis, lab results, radiology results. 09/01 12:14 Order name: Basic Metabolic Panel; Complete Time: 13:07 [facility] 09/01 12:14 Order name: CBC with Diff; Complete Time: 13:07 [facility] 09/01 12:14 Order name: LFT's; Complete Time: 13: [facility] 09/01 12:14 Order name: Magnesium; Complete Time: 13:07 [facility] 09/01 12:14 Order name: NT PRO-BNP; Complete Time: 13:07 [facility] 09/01 12:14 Order name: PT-INR; Complete Time: 13:07 [facility] 09/01 12:14 Order name: Troponin HS; Complete Time: 13:07 [facility] 09/01 12:14 Order name: XRAY Chest (1 view) [facility] 09/01 12:14 Order name: D-Dimer; Complete Time: 13:07 [facility] 09/01 12:14 Order name: SARS-COV-2 RT PCR (Document "Date of Onset" if Symptomatic) [facility] 09/01 15:19 Order name: Urine Dipstick-Ancillary EDKS 09/01 12:14 Order name: EKG; Complete Time: 12:14 [facility] 09/01 12:14 Order name: Cardiac monitoring; Complete Time: 12:15 [facility] 09/01 12:14 Order name: EKG - Nurse/Tech; Complete Time: 12:15 [facility] 09/01 12:14 Order name: IV Saline Lock; Complete Time: 12:15 [facility] 09/01 12:14 Order name: Labs collected and sent; Complete Time: 12:15 [facility] 09/01 12:14 Order name: O2 Per Protocol; Complete Time: 12:15 [facility] 09/01 12:14 Order name: O2 Sat Monitoring; Complete Time: 12:15 [facility] 09/01 12:14 Order name: Urine Dipstick-Ancillary (obtain specimen); Complete Time: 15:22 [facility] 09/01 12:14 Order name: Oxygen; Complete Time: 12:14 jovan Administered Medications: 12:40 Drug: Pepcid (famotidine) 20 mg Route: IVP; Site: right antecubital; ap3 13:24 Follow up: Response: No adverse reaction ap3 12:40 Drug: Lopressor (metoprolol TARTRATE)) 12.5 mg Route: PO; ap3 13:24 Follow up: Response: No adverse reaction ap3 12:40 Drug: PlaVIX (clopidogrel) 75 mg Route: PO; ap3 13:24 Follow up: Response: No adverse reaction ap3 12:41 Drug: Heparin (IL-Bolus No thrombolytic) - HEParin 60 units/kg {Co-Signature: vg1 ap3 (Layne De La Cruz RN).} Route: IVP; Site: right antecubital; 13:24 Follow up: Response: No adverse reaction ap3 12:41 Drug: Heparin (IL Drip) 12 units/kg/hr - (HEParin 17383 units, D5W 500 ml) ap3 {Co-Signature: ab2 (Ernesto Morelos).} Route: IV; Rate: calculated rate; Site: right antecubital; 16:45 Follow up: IV Status: Infusion continued upon transfer ap3 Disposition Summary: 09/01/21 13:15 Transfer Ordered Transfer Location: [facility] jovan Reason: Higher level of care jovan Condition: Fair jovan Problem: new jovan Symptoms: have improved jovan Accepting Physician: to dr marleni stroud(09/01/21 16:45) ap3 Diagnosis - Chest pain, unspecified jovan - Unstable angina jovan - Dyspnea jovan Forms: - Medication Reconciliation Form jovan - SBAR form jovan Signatures: Dispatcher [employer] EDSurinder Garg MD MD cha Prokisch, Amanda RN RN ap3 Layne De La Cruz RN vg1 Ernesto Morelos ab2 Corrections: (The following items were deleted from the chart) 16:45 13:15 to religiousdr marleni andrade cha3
--- NOTE | 2021-09-01 13:16 | ER ---
Nurse's Notes [facility] Name: Eric Bloom Age: 70 yrs Sex: Male : 1950 Arrival Date: 09/01/2021 Time: 11:57 Bed 4 Private MD: Diagnosis: Chest pain, unspecified;Unstable angina;Dyspnea Presentation: 09/01 12:04 Chief complaint: Patient states: he started having chest pain this morning and with his ap3 cardiac history, he didn't want to chance it because the pain he was feeling this morning is similar to what he has had in the past. Patient states that he typically walks an hour in the evenings with his , however recent back pain had him unable to do so for approx 3 weeks. Patient reports that he attempted to do some yard work 3 days ago, and had similar chest pain which resolved with nitro. Patient reports it was the first time he has had to take nitro in 5 years. Coronavirus screen: At this time, the client does not indicate any symptoms associated with coronavirus-19. Ebola Screen: No symptoms or risks identified at this time. Initial Sepsis Screen: Does the patient meet any 2 criteria? No. Patient's initial sepsis screen is negative. Does the patient have a suspected source of infection? No. Patient's initial sepsis screen is negative. Risk Assessment: Do you want to hurt yourself or someone else? Patient reports no desire to harm self or others. Onset of symptoms was September 01, 2021. 12:04 Method Of Arrival: EMS: [facility] ap3 12:04 Acuity: NADJA 2 ap3 Triage Assessment: 12:09 General: Appears in no apparent distress. Behavior is calm, cooperative, appropriate ap3 for age. Pain: Complains of pain in chest Pain currently is 0 out of 10 on a pain scale. at worst was 3 out of 10 on a pain scale. Neuro: Level of Consciousness is awake, alert, obeys commands, Oriented to person, place, time, situation, Appropriate for age Gait is steady, Speech is normal. Cardiovascular: Reports chest pain. Respiratory: Airway is patent Respiratory effort is even, unlabored. Historical: - Allergies: 15:14 No Known Allergies; ap3 - Home Meds: 12:07 Allopurinol Oral [Active]; aspirin 81 mg Oral chew 1 tab once daily [Active]; ap3 Lovastatin Oral [Active]; Enalapril Oral [Active]; Omeprazole Oral [Active]; - PMHx: 12:07 GERD; Gout; Hypertension; Myocardial infarction; Atrial Fib; ap3 - PSHx: 12:07 Bypass X's 4; cardiac stent X's 4; Cholecystectomy; ap3 - Immunization history:: Client reports receiving the 2nd dose of the Covid vaccine. - Social history:: Smoking status: Patient denies any tobacco usage or history of. - Family history:: not pertinent. Screenin:10 Abuse screen: Denies threats or abuse. Nutritional screening: No deficits noted. ap3 Tuberculosis screening: No symptoms or risk factors identified. 16:42 Fall Risk No fall in past 12 months (0 pts). ap3 Assessment: 15:06 Reassessment: Patient and/or family updated on plan of care and expected duration. Pain ap3 level reassessed. Patient is alert, oriented x 3, equal unlabored respirations, skin warm/dry/pink. patients remains at bedside. 15:21 Reassessment: report given to KRYSTINA Hairston at [facility]. ap3 Vital Signs: 12:04 BP 178 / 89; Pulse 59; Resp 17; Temp 97.6(TE); Pulse Ox 100% ; Weight 86.18 kg; Height ap3 5 ft. 8 in. (172.72 cm); 13:08 BP 147 / 87; Pulse 51; Pulse Ox 99% ; ap3 14:15 BP 148 / 80; Pulse 48; Pulse Ox 100% ; ap3 15:06 BP 144 / 86; Pulse 48; Pulse Ox 100% ; ap3 12:04 Body Mass Index 28.89 (86.18 kg, 172.72 cm) ap3 ED Course: 11:57 Patient arrived in ED. aa5 12:03 Surinder Priest MD is Attending Physician. jovan 12:04 Lilibeth Zheng RN is Primary Nurse. ap3 12:07 Triage completed. ap3 12:10 Arm band placed on left wrist. EKG completed in triage. Results shown to MD. ap3 12:10 Patient has correct armband on for positive identification. Placed in gown. Bed in low ap3 position. Call light in reach. Side rails up X2. Adult w/ patient. monitoring manager on. Pulse ox on. NIBP on. Door closed. Noise minimized. 12:11 Inserted saline lock: 20 gauge in right antecubital area, using aseptic technique. ap3 Blood collected. 13:29 initiated transfer to [facility], no cardiac bed avaliable at this time, per percy bravo. 13:48 XRAY Chest (1 view) In Process Unspecified. EDMS 13:48 Mena from [facility] called back with approval, pt accepted in transfer by Dr Arash Sandhu, admin approval given by Mena Dias. 16:41 No provider procedures requiring assistance completed. Patient transferred, IV remains ap3 in place. Administered Medications: 12:40 Drug: Pepcid (famotidine) 20 mg Route: IVP; Site: right antecubital; ap3 13:24 Follow up: Response: No adverse reaction ap3 12:40 Drug: Lopressor (metoprolol TARTRATE)) 12.5 mg Route: PO; ap3 13:24 Follow up: Response: No adverse reaction ap3 12:40 Drug: PlaVIX (clopidogrel) 75 mg Route: PO; ap3 13:24 Follow up: Response: No adverse reaction ap3 12:41 Drug: Heparin (IN-Bolus No thrombolytic) - HEParin 60 units/kg {Co-Signature: vg1 ap3 (Layne De La Cruz RN).} Route: IVP; Site: right antecubital; 13:24 Follow up: Response: No adverse reaction ap3 12:41 Drug: Heparin (IN Drip) 12 units/kg/hr - (HEParin 67727 units, D5W 500 ml) ap3 {Co-Signature: ab2 (Ernesto Morelos).} Route: IV; Rate: calculated rate; Site: right antecubital; 16:45 Follow up: IV Status: Infusion continued upon transfer ap3 Outcome: 13:15 ER care complete, transfer ordered by MD. aldana 16:42 Transferred by ground EMS to [facility]. ap3 16:42 Condition: good 16:42 Instructed on the need for transfer, Demonstrated understanding of instructions. 16:45 Patient left the ED. ap3 Signatures: Dispatcher [employer] EDMS Patience Chance Corey, MD MD cha Calderon, Audri RN RN aa5 Lilibeth Zheng RN RN ap3 Layne De La Cruz RN vg1 Ernesto Morelos ab2 Corrections: (The following items were deleted from the chart) 15:06 14:15 BP 144 / 86; Pulse 48bpm; Pulse Ox 100%; ap3 ap3
--- NOTE | 2021-09-01 13:59 | RAD REPORT ---
EXAM DESCRIPTION: Nael Single View09/01/2021 1:49 pm CLINICAL HISTORY: Chest pain COMPARISON: 2019 FINDINGS: The lungs appear clear of acute infiltrate. The heart is normal size. Postsurgical change s involve chest IMPRESSION: No acute abnormalities displayed
[2021-09-01 15:19] LABS: Urine Blood Trace-lysed (Negative); Urine Glucose Negative (Negative); Urine Protein Negative (Negative); Urine Specific Gravity >=1.030 (1.005-1.030); Urine pH 5.5 (5.0-7.0)
[2021-09-01 17:22] VITALS: TEMP 97.6
[2021-09-01 17:27] VITALS: O2SAT 100
[2021-09-01 17:28] VITALS: BP 144/86
== END 2021-09-01 16:45 | disposition short-term general hospital (02) ==
LOC: ER 11:51
DX: I20.0 Unstable angina (principal); R06.00 Dyspnea, unspecified; I10 Essential (primary) hypertension; I25.2 Old myocardial infarction; I48.91 Unspecified atrial fibrillation; Z95.1 Presence of aortocoronary bypass graft; Z95.818 Presence of other cardiac implants and grafts; Z79.82 Long term (current) use of aspirin; Z20.822 Contact with and (suspected) exposure to COVID-19
CPT/HCPCS: 96365; 93005; 85025; 80048; 36415; 83735; 85610; 85379; 80076; 81003; 84484; 83880; 71045; 96375; 99285; 96366; U0003; J1644 ×2

== ENCOUNTER 2025-02-03 07:19 | Day surgery (SDC) | payer OTHER ==
[2025-01-31 16:21] LABS: Absolute Lymphocytes (CBC) 0.8 K/uL (0.7-4.9); Hematocrit 42.7 % (39.6-49.0); Hemoglobin 14.7 g/dL (13.6-17.9); MCH 31.7 pg (27.0-35.0); MCHC 34.5 g/dL (32.0-36.0); MCV 92.0 fL (80-100); MPV 8.6 fL (7.6-11.3); Nucleated RBC Absolute Count 0.0 (0-0); Nucleated Red Blood Cells % 0.0 % (0-0); RBC Red Blood Cell Count 4.64 M/uL (4.33-5.43); White Blood Count 5.50 thou/uL (4.3-10.9)
[2025-01-31 16:37] LABS: Anion Gap 8.2 mEq/L (5.0-15.0); BUN Blood Urea Nitrogen 14.0 mg/dL (7-18); Glucose Level 112.0 mg/dL (74-106); Potassium 4.2 mEq/L (3.5-5.1)
[2025-02-03] MEDS ORDERED: Ringers Lactate 1,000 ML IV ONE (07:39)
[2025-02-03] MEDS ORDERED: LIDOCAINE 1% MPF 5 ML VIAL ONE (08:15)
[2025-02-03] MEDS ORDERED: GLYCOPYRROLATE 0.2 MG/ML SYR ONE (09:02)
[2025-02-03 09:37] VITALS: BP 143/62; TEMP 98.5; O2SAT 100
== END 2025-02-03 09:45 | disposition home or self-care (01) ==
LOC: OR 07:19
PROVIDERS: ATTEND Surgery
PROC: 0DBM8ZX Excision of Descending Colon, Via Natural or Artificial Opening Endoscopic, Diagnostic (ICD-10-PCS; principal; 2025-02-03 08:30)
DX: R19.4 Change in bowel habit (principal); R10.11 Right upper quadrant pain; R10.31 Right lower quadrant pain; R10.9 Unspecified abdominal pain; R14.3 Flatulence; K57.30 Diverticulosis of large intestine without perforation or abscess without bleeding; K64.4 Residual hemorrhoidal skin tags; K64.8 Other hemorrhoids; D12.4 Benign neoplasm of descending colon
CPT/HCPCS: 85025; 80048; 36415; 88305; 45384; J2704; J2003; J7120